=== PATIENT | male | born 1950 | race Caucasian/White ===

== ENCOUNTER 2019-07-28 08:56 | Inpatient (IN) ==
--- NOTE | 2019-07-08 16:16 | PAT Medication Instructions ---
Medication Instructions Date of Service July 08, 2019 Home Medications aspirin [Aspir-81] 81 mg PO QAM 07/07/19 [History Confirmed 07/07/19] empagliflozin [Jardiance] 25 mg PO QAM 07/07/19 [History Confirmed 07/07/19] enalapril maleate [Vasotec] 10 mg PO QAM 07/07/19 [History Confirmed 07/07/19] gabapentin 300 mg PO TID 07/07/19 [History Confirmed 07/07/19] glipizide 10 mg PO BID 07/07/19 [History Confirmed 07/07/19] latanoprost 1 drp OPHTHALMIC (EYE) HS 07/07/19 [History Confirmed 07/07/19] metformin 1,000 mg PO BID 07/07/19 [History Confirmed 07/07/19] multivitamin 1 cap PO DAILY 07/07/19 [History Confirmed 07/07/19] omega 8-yat-svz-fish oil [Fish Oil] 1 cap PO DAILY 07/07/19 [History Confirmed 07/07/19] oxycodone 5 - 10 mg PO UD PRN 07/07/19 [History Confirmed 07/07/19] sildenafil [Viagra] 100 mg PO UD PRN 07/07/19 [History Confirmed 07/07/19] simvastatin 40 mg PO HS 07/07/19 [History Confirmed 07/07/19] ASK your prescriber and surgeon aspirin [Aspir-81] 81 mg PO QAM 07/07/19 [History Confirmed 07/07/19] STOP taking 2 weeks before surgery (or as soon as possible if surgery is within 2 weeks) omega 8-yim-qoj-fish oil [Fish Oil] 1 cap PO DAILY 07/07/19 [History Confirmed 07/07/19] DO NOT take the morning of surgery empagliflozin [Jardiance] 25 mg PO QAM 07/07/19 [History Confirmed 07/07/19] enalapril maleate [Vasotec] 10 mg PO QAM 07/07/19 [History Confirmed 07/07/19] glipizide 10 mg PO BID 07/07/19 [History Confirmed 07/07/19] metformin 1,000 mg PO BID 07/07/19 [History Confirmed 07/07/19] multivitamin 1 cap PO DAILY 07/07/19 [History Confirmed 07/07/19] sildenafil [Viagra] 100 mg PO UD PRN 07/07/19 [History Confirmed 07/07/19] Take morning of surgery With a small sip of water, OTHERWISE NOTHING TO EAT OR DRINK AFTER MIDNIGHT: gabapentin 300 mg PO TID 07/07/19 [History Confirmed 07/07/19] oxycodone 5 - 10 mg PO UD PRN (okay to take up to 4 hours prior to surgery if needed) Take evening before surgery gabapentin 300 mg PO TID 07/07/19 [History Confirmed 07/07/19] glipizide 10 mg PO BID 07/07/19 [History Confirmed 07/07/19] latanoprost 1 drp OPHTHALMIC (EYE) HS 07/07/19 [History Confirmed 07/07/19] metformin 1,000 mg PO BID 07/07/19 [History Confirmed 07/07/19] oxycodone 5 - 10 mg PO UD PRN (if needed) sildenafil [Viagra] 100 mg PO UD PRN (if needed) simvastatin 40 mg PO HS 07/07/19 [History Confirmed 07/07/19] Other Notes If you have any questions please call us at [phone] or [phone] or [phone] or [phone]
--- NOTE | 2019-07-09 13:36 | Anesthesiology Consultation ---
Date of Service July 09, 2019 Assessment & Plan (1) Encounter for pre-operative examination: - Awaiting most recent cardiology office visit note (Dr. Medeiros) and most recent EKG. - Check BSG AM DOS - ASA instructions per surgeon/prescriber Chart Review Chart Review: Patient seen in Pre Admission Testing Teaching & Discussion Pre-Anesthesia Teaching/Discussion Notes: Instructed NPO after midnight before surgery,except medications with 15 cc of water. Medication instructions provided according to the PAT guidelines. History Surgery Operation Date: 07/28/19 11:20 Proposed Procedures p Robotic Laparoscopic Assisted Radical Retropubic Prostatectomy, Possible Open, Possible Pelvic Lymph Node Dissection, Possible Suprapubic Tube Placement - Thanh Badillo MD Height/Weight Height: 5 ft 8 in Weight: 80.3 kg Allergies Allergy/AdvReac Type Severity Reaction Status Date / Time cat dander Allergy Unknown ITCHY EYES Verified 07/07/19 12:33 Iodinated Contrast Media Allergy Unknown SEE NOTES Verified 07/07/19 12:33 BELOW - HX SWELLING IN AIRWAY monosodium glutamate Allergy Unknown TROUBLE Verified 07/07/19 12:33 BREATHING Medications Home Medications Medication Instructions Recorded Confirmed Last Taken aspirin [Aspir-81] 81 mg PO QAM 07/07/19 07/07/19 Unknown empagliflozin [Jardiance] 25 mg PO QAM 07/07/19 07/07/19 Unknown enalapril maleate [Vasotec] 10 mg PO QAM 07/07/19 07/07/19 Unknown gabapentin 300 mg PO TID 07/07/19 07/07/19 Unknown glipizide 10 mg PO BID 07/07/19 07/07/19 Unknown latanoprost 1 drp OPHTHALMIC (EYE) 07/07/19 07/07/19 Unknown metformin 1,000 mg PO BID 07/07/19 07/07/19 Unknown multivitamin 1 cap PO DAILY 07/07/19 07/07/19 Unknown omega 5-pre-oht-fish oil [Fish Oil] 1 cap PO DAILY 07/07/19 07/07/19 Unknown oxycodone 5 - 10 mg PO UD PRN 07/07/19 07/07/19 Unknown sildenafil [Viagra] 100 mg PO UD PRN 07/07/19 07/07/19 Unknown simvastatin 40 mg PO HS 07/07/19 07/07/19 Unknown Cbd gummies 1 dose PO BID 07/09/19 Unknown Past Medical History Medical History CAD (coronary artery disease) mild, non-obstructive CAD per 03/2019 cath Diabetes NIDDM Prostate cancer Sciatica s/p lumbar injection 07/01/19 Sleep apnea CPAP (generally complaint/does not use when on vacation) Umbilical hernia Exercise / Class Metabolic Activity III < 4 Walking/Shop/Light housework (gym few times/week + stationary bike (no chest pain/no sob)) Past Family History Family History Father Diabetes Heart disease Mother Hypertension Heart disease Brother Stomach cancer Past Surgical History Surgical History H/O knee surgery CYST REMOVED, R History of appendectomy History of cardiac cath X3 - 2003, 2004, 03/2019 - no stents History of carpal tunnel surgery of right wrist History of colonoscopy History of hernia surgery inguinal (right)- AGE 6 History of lumbar fusion History of repair of left rotator cuff History of repair of right rotator cuff History of vasectomy Past Anesthesia History No Hx of Anesthesia Complications and No Family Hx of Anesthesia Complications History of PONV No Hx of PONV and No Hx of Motion Sickness Social History Smoking Status: Never smoker Do You Dip or Chew Tobacco: No Hx Alcohol Use: Yes alcohol intake frequency: other Alcohol Intake Frequency Comment: ONCE A YR Hx Substance Use: No Review of Systems Patient denies chest pain, shortness of breath, dyspnea on exertion, joint pain, reflux, cough, wheezing, palpitations. Physical Exam Vital Signs VITALS BP 101/58 P 92 TEMP 98.3 SP02 94%RA RESP 18 PHYSICAL Mildly decreased cervical extension. Full TMJ range of motion. TMD 3 finger breaths Mallampati Score 3 Dentition: missing lower left molar, several caps on molars, small left upper front tooth chip Lungs: clear throughout to auscultation Cardiac: regular rate and rhythm, I/ systolic murmur Spine: normal Carotid arteries: negative bruit Extremities: no edema Testing Laboratory Results 07/09/19 14:05 07/09/19 14:05 Hemoglobin A1c 8.8 % (4.5-5.6) H 07/09/19 14:05 Urine Color Yellow 07/09/19 Unknown Urine Appearance Clear (Clear) 07/09/19 Unknown Urine pH 5.5 (4.5-7.5) 07/09/19 Unknown Ur Specific [place] 1.037 (1.000-1.030) H 07/09/19 Unknown Urine Protein Negative (Negative) 07/09/19 Unknown Urine Glucose (UA) 3+ (Negative) H 07/09/19 Unknown Urine Ketones Trace (Negative) H 07/09/19 Unknown Urine Nitrite Negative (Negative) 07/09/19 Unknown Ur Leukocyte Esterase Negative (Negative) 07/09/19 Unknown Blood Type B Positive 07/09/19 14:05 Antibody Screen NEGATIVE 07/09/19 14:05 *Surgeon office made aware of elevated glucose/hgba1c* Electrocardiogram Date: 07/09/19 SR with first degree AVC with PAC's at 78bpm. RBBB. LAFB. *Bifascicular block* Borderline criteria for septal infarct, age undetermined. Chest X-Ray Date: 07/09/19 Findings: + NAD Echocardiogram Date: 08/27/18 EF 50-55%. No significant valvular disease. Stress Test Date: 03/13/19 Type: nuclear (Lexiscan) Gated MPI with mild inferior HK and normal EF. LVEF 62%. Large sized, moderate intensity, fixed MPI defect involving the inferior, inferoseptal, infero-apical and inferolateral myocardium (suggests large myocardial infarct without significant ischemia). Low risk for ischemia. Subsequent cardiac cath with non- obstructive disease. Cardiac Catheterization Date: 03/25/19 Mild, non-obstructive CAD. No aortic stenosis. LAD 15% luminal irregularities. RCA 30-40% proximal vessel narrowing. Mid AV groove 20% narrowing.
--- NOTE | 2019-07-09 14:40 | XRay Report ---
XR chest Pre-admission PA/Lat CLINICAL HISTORY: Preoperative chest COMPARISON STUDY: 04/30/2017 FINDINGS: The cardiac and mediastinal contours are normal. There is no evidence of focal pulmonary co nsolidation. There is no evidence of failure. No pleural effusions are visualized.[Degenerative cunningham es are present within the dorsal spine. IMPRESSION: No active disease in the chest. ACT 112: Negative or not required by law. Electronically signed by: Suresh Mota M.D. 07/09/2019 2:39 PM
[2019-07-09 15:16] LABS: Appearance Urine Clear (Clear); Bilirubin Urine Negative (Negative); Blood Urine Negative (Negative); Color Urine Yellow; Glucose Urine UA 3+ (Negative); Ketones Urine Trace (Negative); Leukocyte Esterase Urine Negative (Negative); Nitrite Urine Negative (Negative); Protein Urine Negative (Negative); Specific Gravity Urine 1.037 (1.000-1.030); Urobilinogen Urine Negative (Negative); pH Urine 5.5 (4.5-7.5)
[2019-07-09 15:17] LABS: Basophils # (auto) 0.02 K/uL (0-0.2); Basophils % (auto) 0.2 %; Eosinophils # (auto) 0.18 K/uL (0-0.5); Eosinophils % (auto) 2.1 %; Hematocrit (blood only) 47.6 % (42-52); Hemoglobin 16.5 g/dL (14.0-18.0); Immature Granulocytes # (auto) 0.03 K/uL (0.00-0.02); Immature Granulocytes % (auto) 0.4 %; Lymphocytes # (auto) 1.73 K/uL (1.2-3.4); Lymphocytes % (auto) 20.5 %; Mean Corpuscular Hemoglobin 32.6 pg (25-34); Mean Corpuscular Hgb Conc 34.7 g/dL (32-36); Mean Corpuscular Volume 94.1 fL (80-100); Mean Platelet Volume 9.5 fL (7.4-10.4); Monocytes # (auto) 0.75 K/uL (0.11-0.59); Monocytes % (auto) 8.9 %; Neutrophils # (auto) 5.73 K/uL (1.4-6.5); Neutrophils % (auto) 67.9 %; Platelet Count 242 K/uL (130-400); RDW Coefficient of Variation 13.5 % (11.5-14.5); RDW Standard Deviation 46.3 fL (36.4-46.3); Red Blood Count 5.06 M/uL (4.7-6.1); White Blood Count 8.44 K/uL (4.8-10.8)
[2019-07-09 15:57] LABS: BUN Creatinine Ratio 13.1 (10-20); Calcium 8.6 mg/dl (8.5-10.1); Creatinine Clr Calc Pharmacy 48.5 ml/min; Est GFR (African American) 58.9; Est GFR (Non-African American) 50.8; Potassium 4.6 mmol/L (3.5-5.1)
--- NOTE | 2019-07-09 17:38 | Electrocardiogram Report ---
Test Reason : Blood Pressure : / mmHG Vent. Rate : 078 BPM Atrial Rate : 078 BPM P-R Int : 212 ms QRS Dur : 132 ms QT Int : 394 ms P-R-T Axes : 073 -72 026 degrees QTc Int : 449 ms Sinus rhythm with 1st degree A-V block with Premature atrial complexes Right bundle branch block Left anterior fascicular block Borderline Criteria for Septal infarct , age undetermined Abnormal ECG When compared with ECG of 30-APR-2017 11:44, Premature atrial complexes are now Present Vent. rate has increased BY 26 BPM Right bundle branch block is now Present Borderline Criteria for Septal infarct now present Confirmed by Bryant Grant ([id number]) on 07/09/2019 5:37:51 PM Referred By: Thanh Badillo Confirmed By:Bryant Grant
[2019-07-10 06:12] LABS: Estimated Average Glucose 206 mg/dl; Hemoglobin A1C 8.8 % (4.5-5.6)
[~2019-07-28 08:56] MED LIST: CEFAZOLIN 3000MG 72.5 ML IV SCH; HEPARIN SOD 5,000 UNIT/0.5 ML VIAL SQ SCH; LACTATED RINGER'S 1,000 ML IV SCH
[2019-07-28] MEDS ORDERED: LABETALOL HCL IV 5 MG/ML 20ML IV PRN (10:05)
[2019-07-28] MEDS ORDERED: MEPERIDINE HCL 25 MG/ML CARP IV PRN (10:05)
[2019-07-28] MEDS ORDERED: ONDANSETRON INJ 2 MG/ML 2 ML VIAL IV PRN ×2 (10:05→17:39)
[2019-07-28] MEDS ORDERED: HYDROmorphone INJ 1 MG/ML SYRINGE IV PRN (10:05)
[2019-07-28] MEDS ORDERED: ePHEDrine sulfate 50 MG/ML AMP IV PRN (10:05)
[2019-07-28] MEDS ORDERED: PHENYLEPHRINE 100MCG/ML 5ML SYR IV PRN (10:05)
[2019-07-28] MEDS ORDERED: ATROPINE SULFATE 0.1 MG/ML 10ML SYR IV PRN (10:05)
[2019-07-28] MEDS ORDERED: fentaNYL citrate 100 MCG/2 ML VIAL IV PRN (10:05)
[2019-07-28] MEDS ORDERED: fentaNYL citrate 100 MCG/2 ML VIAL ONE ×2 (10:41)
[2019-07-28] MEDS ORDERED: PROPOFOL IV EMULSION 10 MG/ML 20 ML VIAL IV ONE (10:41)
[2019-07-28] MEDS ORDERED: NEOSTIGMINE METHYLSULFATE 5 MG/5 ML SYR ONE (10:41)
[2019-07-28] MEDS ORDERED: LIDOCAINE HCL 2% 2 ML VIAL/AMP(20MG/ML) INFIL ONE (10:41)
[2019-07-28] MEDS ORDERED: MIDAZOLAM HCL 1 MG/ML 2ML VIAL ONE (10:41)
[2019-07-28] MEDS ORDERED: DEXAMETHASONE SOD INJ 4 MG/ML VIAL ONE (10:41)
[2019-07-28] MEDS ORDERED: GLYCOPYRROLATE 0.2 MG/ML VIAL ONE (10:41)
[2019-07-28] MEDS ORDERED: ONDANSETRON INJ 2 MG/ML 2 ML VIAL ONE (10:41)
[2019-07-28] MEDS ORDERED: HYDROmorphone INJ 2 MG/ML SYR/VIAL ONE (10:52)
--- NOTE | 2019-07-28 11:24 | History & Physical Bridge Note ---
Date of Service July 28, 2019 History & Physical Bridge Note I have examined the patient, reviewed the History & Physical and in the interval since the performance of the History & Physical I have noted the following changes of clinical significance: no changes noted
[2019-07-28] MEDS ORDERED: BUPIVACAINE 0.5 % 5 MG/1 ML MPF 30ML VIAL ONE (11:40)
[2019-07-28] MEDS ORDERED: BELLADONNA/OPIUM SUPP 60 MG SUPP PR ONE (12:12)
[2019-07-28] MEDS ORDERED: BELLADONNA/OPIUM SUPP 60 MG SUPP PR PRN (14:12)
[2019-07-28] MEDS ORDERED: SURGICEL ABSORB HEMOSTAT 2IN X 14IN TOP ONE (14:13)
[2019-07-28] MEDS ORDERED: FLOSEAL HEMOSTATIC MATRIX 10ML TOP ONE (14:49)
--- NOTE | 2019-07-28 16:08 | Operative Report ---
PG Post Operative Report Pre & Post Diagnosis Operation Date: 07/28/19 11:10 Pre-Op Diagnosis: Prostate Cancer Post-Op Diagnosis: Prostate Cancer I identified the patient and participated in the time-out.: Yes Procedure Operation Date: 07/28/19 11:10 Actual Procedures p Robotic-Assisted Laparoscopic Prostatectomy and Pelvic Lymph Node Dissection(Not Applicable) - Thanh Badillo MD Surgeon El Badillo MD Ethnographer Pamela Acosta Estimated Blood Loss 100 Findings Consistent with Post-Op Diagnosis Specimens 1. Periprostatic fat 2. Left pelvic lymph nodes 3. Right pelvic lymph nodes 4. Prostate and seminal vesicles Description of Procedure The patient was identified in the preoperative holding area, appropriate informed consents were reviewed and completed, and he was transported to the operating suite. Subcutaneous heparin was administered in the pre-operative holding area. Upon arrival in the operating suite, he received appropriate antibiotics and general anesthesia. He was positioned in dorsal lithotomy, a B&O suppository was inserted after digital rectal exam, and he was prepped and draped in standard fashion. A Chavez catheter was inserted in the sterile field. A Veress needle was passed per umbilicus with uniform insufflation of the abdomen to 15mmHg. He was placed in steep Trendelenburg position. A periumbilical incision was then made to accommodate a 12mm Visiport with 10mm 0degree laparoscope. Inspection of the abdomen was carried out, and there was no evidence of traumatic entry or injury secondary to the Veress needle. After confirming a clear anterior abdominal wall, ports were subsequently placed in standard robotic prostatectomy fashion without incident. To begin the robotic portion of the case, the left lateral aspect of the sigmoid was mobilized off of the left pelvic side wall to allow the pouch of Jorge to be appropriately visualized. I then made an incision in the pouch of Jorge, overlying the seminal vesicles. Both SVs as well as the ampullae of the vasa were entirely dissected, with the vasa transected 3cm from the prostate. The medial umbilical ligaments were then controlled with bipolar electrocautery just inferior to the umbilicus. Following cauterization, they were divided utilizing monopolar cautery. A peritoneal incision was carried from this location to the medial aspect of the internal inguinal rings bilaterally with care to avoid opening through the ring. This incision was concluded when the vas deferens was reached. Dissection of the bladder and prostate off of the posterior aspect of the pubic arch was completed allowing full visualization of the prostate. The fat overlying the prostate was removed en bloc and passed off the table as a specimen labeled "periprostatic fat". The endopelvic fascia was cleared during this portion of the procedure, and subsequently opened - first on the right and then the left. The incision through the endopelvic fascia began near the prostate-bladder junction and was carried to the apex with extreme care to preserve all lateral levator musculature as well as the periurethral musculature and sphincter complex. The puboprostatic ligaments were thinned slightly bilaterally before placing a 0-Vicryl figure of 8 stitch around the DVC. The lymph node dissection was then conducted. External iliac vessels were identified on the pelvic side wall. The packet of fat and lymphatic tissue that resides just under the iliac vein was elevated and off of the vein with a split and roll technique. The packet was dissected laterally to the circumflex vein and distally to the obturator nerve which was preserved. The proximal aspect of the packet was carried towards the bifurcation of the iliac vessels. A combination of monopolar and bipolar cautery were used to assist with control. Clips were placed at the proximal and distal aspects of the packet prior to transection. After completing the dissection on both sides, the packets were collected and passed off of the table as specimens labeled "pelvic lymph nodes". My attention then returned to the prostate, with identification of the bladder neck aided by gentle traction on the Chavez catheter and lateral to medial pressure at the presumed level of the bladder neck with the robotic instruments. An anterior cystotomy was made, the Chavez balloon deflated and the catheter guided through the incision to allow anterior retraction. I attempted to preserve maximal bladder neck musculature as I circumferentially dissected around the bladder neck. After incision through the posterior aspect of the mucosa, the dissection was carried through detrusor muscle until the bilateral ampullae of the vasa were identified. The previously dissected vasa and SVs were brought through the incision and used to elevated the prostate anteriorly. A posterior plane behind the prostate was then developed - splitting Denonvilliers's fascia. This dissection was carried as far as possible towards the apex as well as far as possible laterally. An incision in the lateral prostatic fascia was then made bilaterally to facilitate control of the vascular pedicles. The pedicles were each controlled with a series of Weck clips. The neurovascular bundles were identified and preserved (with caution) bilaterally. The apical attachments of the prostate were remaining at that stage. The DVC was divided with bipolar electrocautery. Padmini-prostatic tissue incised with sharp dissection and monopolar cautery. Maximal urethral length was preserved before dividing the urethra sharply. The prostate was entirely freed at that point, and collected in an EndoCatch bag before being moved out of the field of vision. Hemostasis was confirmed and anastomosis of the bladder and urethra was completed utilizing a double armed V- Lock stitch. A new Chavez catheter was inserted and the anastomosis tested with irrigation. There was no evidence of leak. FloSeal coagulant was placed around the anastomosis. A Adria style stitch was used to edward the peritoneum towards the location of the lymph node dissection. The robot was undocked, the specimen extracted through expansion of the padmini- umbilical camera port. The fascia was closed with a series of 0-PDS figure of 8 stitches. The right customer relations assistant port was closed in two layers - with a figure of 8 0-Vicryl to reapproximate the fascia followed by 4-0 Monocryl to close the skin. Monocryl was used to close all other skin incisions. All wounds were dressed with Dermabond. The case was concluded and the patient taken to the PACU in stable condition. Pamela Acosta assisted from incision to closure. I attest to the content of the Intraoperative Record and any orders documented therein. Any exceptions are noted below.
--- NOTE | 2019-07-28 16:32 | Anesthesiology Progress Note ---
Date of Service July 28, 2019 Anesthesia Post Procedure Vital Signs Vital Signs: Temp Pulse Pulse Resp BP Pulse Ox 07/28/19 16:30 36.3 C L 86 14 141/71 H 95 07/28/19 16:20 85 16 157/79 H 93 07/28/19 16:10 85 18 131/77 96 07/28/19 16:01 36.1 C L 91 H 16 127/69 96 07/28/19 09:30 36.8 C 97 H 20 125/80 95 Pain Intensity Lower Neck: Pain Intensity: 2 Transfer of Care Handoff Completed per policy Notes Mental Status: alert / awake / arousable and participated in evaluation Patient Amnestic to Procedure: Yes Nausea / Vomiting: adequately controlled Pain: adequately controlled Airway Patency, RR, SpO2: stable & adequate BP & HR: stable & adequate Hydration State: stable & adequate Anesthetic Complications: no major complications apparent
[2019-07-28 16:52] LABS: Hematocrit (blood only) 48.2 % (42-52); Hemoglobin 16.9 g/dL (14.0-18.0); Mean Corpuscular Hemoglobin 32.4 pg (25-34); Mean Corpuscular Volume 92.3 fL (80-100); Mean Platelet Volume 8.6 fL (7.4-10.4); Platelet Count 218 K/uL (130-400); RDW Standard Deviation 44.2 fL (36.4-46.3); Red Blood Count 5.22 M/uL (4.7-6.1); White Blood Count 14.41 K/uL (4.8-10.8)
[2019-07-28 16:54] LABS: Mean Corpuscular Hgb Conc 35.1 g/dL (32-36)
[2019-07-28 17:10] LABS: BUN Creatinine Ratio 21.5 (10-20); Calcium 8.5 mg/dl (8.5-10.1); Creatinine Clr Calc Pharmacy 72.8 ml/min; Est GFR (African American) 96.2; Potassium 4.5 mmol/L (3.5-5.1)
[2019-07-28 17:23] LABS: Basophils # (auto) 0.02 K/uL (0-0.2); Basophils % (auto) 0.1 %; Eosinophils # (auto) 0.01 K/uL (0-0.5); Eosinophils % (auto) 0.1 %; Immature Granulocytes # (auto) 0.06 K/uL (0.00-0.02); Immature Granulocytes % (auto) 0.4 %; Lymphocytes # (auto) 1.12 K/uL (1.2-3.4); Lymphocytes % (auto) 7.8 %; Monocytes # (auto) 0.37 K/uL (0.11-0.59); Monocytes % (auto) 2.6 %; Neutrophils # (auto) 12.83 K/uL (1.4-6.5)
[2019-07-28] MEDS ORDERED: MoRPHine SULFATE 10 MG/ML CARP/VIAL IV PRN (17:39)
[2019-07-28] MEDS ORDERED: MoRPHine SULFATE 4 MG/ML 1 ML CARP\\VIAL IV PRN (17:39)
[2019-07-28] MEDS ORDERED: OXYCODONE HCL IR 5 MG TAB (IMMEDIATE RELEASE) PO PRN (17:39)
[2019-07-28] MEDS ORDERED: PHARMACY GLYCEMIC MGMT CONSULT PRN (17:41)
[2019-07-28] MEDS: LACTATED RINGER'S 1,000 ML IV SCH (17:47)
[2019-07-28] MEDS: ACETAMINOPHEN 1,000 MG/100 ML VIAL IV SCH (17:54)
[2019-07-28] MEDS ORDERED: INSULIN GLARGINE SOLOSTAR 100 UNITS/ML 3 ML PEN SC STA (17:55)
[2019-07-28] MEDS ORDERED: INSULIN ASPART 100 UNITS/ML 3 ML PEN SC SCH (18:00)
[2019-07-28] MEDS ORDERED: GLUCOSE 40% GEL 15 GM TUBE PO PRN (18:00)
[2019-07-28] MEDS ORDERED: GLUCOSE 10 TABS/TUBE PO PRN (18:00)
[2019-07-28] MEDS ORDERED: DEXTROSE 50% 50 ML SYRINGE IV PRN (18:00)
[2019-07-28] MEDS ORDERED: CARBOHYDRATES FOR HYPOGLYCEMIA PO PRN (18:00)
[2019-07-28] MEDS ORDERED: GLUCAGON FOR INJ 1 MG VIAL IM PRN (18:00)
--- NOTE | 2019-07-28 18:03 | Pharmacy Report ---
Glycemic Control Consultation - Date of Service July 28, 2019 - Scope Scope: Glycemic Pharmacist consulted by WILLY Roche on 07/28/2019 for glycemic control and to write orders per [facility] inpatient glycemic control protocol - Objective Weight: 76.884 kg Accuchecks BSG (last 24hrs): 07/28/19 07/28/19 07/28/19 09:23 16:03 16:40 Glucose 212 H POC Glucose 152 H 181 H 07/28/19 17:46 Glucose POC Glucose 178 H Laboratory Data (last 24hrs): 07/28/19 16:40 Potassium 4.5 Carbon Dioxide 17 L Anion Gap 13.0 H Creatinine 0.94 Est Cr Clr Drug Dosing 72.8 HbA1c: Hemoglobin A1c 8.8 % (4.5-5.6) H 07/09/19 14:05 - Recent Pertinent Medications Outpatient Anti-diabetic Regimen: * Jardiance 25 mg daily, Glipizide 10 mg BID, Metformin 1000 mg BID * A1c = 8.8 % (07/09/2019) The patient is currently receiving: * No coverage ordered as of yet Risk Factors for Insulin Resistance: * Steroids: * Dexamethasone 8 mg pre-op * Recent Surgery: * POD #0 prostatectomy * Diet: * Clear Liquids - Assessment & Plan Assessment & Plan: ASSESSMENT: * 69 yo M admitted s/p prostatectomy today * Diet is clear liquids at this time * Received Dexamethasone pre-op * Admission BSG 152 mg/dL, now 181 mg/dL * Patient is insulin-naive PLAN FOR INPATIENT GLYCEMIC CONTROL: * Pt is maintained on oral antidiabetic agents as an outpatient * Oral agents are not recommended for inpatient use d/t drug interactions, changing PO intake, and difficulty titrating for acute hyper/hypoglycemia. ADA recommends re-initiating outpatient oral agents 1-2 days prior to discharge if/when appropriate if they were held on admission. * Will hold oral agents for admission and utilize SQ basal bolus insulin regimen which is the recommended regimen for inpatient glycemic control. * Will initiate weight based insulin dosing for insulin baldo patient and titrate based on BSG trends. * Basal insulin * Lantus 12 units SQ x 1 now (80% of 0.2 units/kg based on current BSG and steroid dose) * Bolus insulin * NovoLog per scale Q6hrs * Goal Range: Low 120 mg/dL - High 150 mg/dL * Correction Factor: 20 mg/dL/unit * Nutritional / Prandial insulin per carb ratio of 1 unit per 7 grams CHO consumed DISCHARGE RECOMMENDATIONS: * Based on patient's most recent A1c of 8.8%, outpatient regimen is not adequately controlling diabetes * Patient may require basal and/or bolus insulin upon discharge * Further recommendation will be made closer to discharge * Please note that the plan above was derived based on current level of insulin resistance and hospital stress. These recommendations are appropriate for inpatient admission only. Plan of care upon discharge will need to be reassessed to avoid potential outpatient hypo/hyperglycemia. Thank you.
[2019-07-28] MEDS: OXYCODONE HCL IR 5 MG TAB (IMMEDIATE RELEASE) PO PRN (18:36)
[2019-07-28] MEDS ORDERED: Nursing to Pharmacy Communication ONE (18:49)
[2019-07-28] MEDS: INSULIN ASPART 100 UNITS/ML 3 ML PEN SC SCH ×2 (18:59→20:41)
[2019-07-28] MEDS: CEFAZOLIN 2000MG 2,000 MG/15 ML SYR IV SCH (20:36)
[2019-07-28] MEDS: HEPARIN SOD 5,000 UNIT/0.5 ML VIAL SQ SCH (20:38)
[2019-07-28] MEDS: GABAPENTIN 300 MG CAP PO SCH (20:53)
[2019-07-28] MEDS: LATANOPROST 0.005% OP SOLN 2.5 ML BTL OP SCH (20:53)
[2019-07-28] MEDS: FAMOTIDINE 10 MG TABLET PO SCH (20:54)
[2019-07-28] MEDS: SIMVASTATIN 40 MG TAB PO SCH (20:54)
[2019-07-28] MEDS: DOCUSATE SODIUM 100 MG CAP PO SCH (20:55)
[2019-07-29] MEDS: INSULIN ASPART 100 UNITS/ML 3 ML PEN SC SCH ×7 (00:16→21:07)
[2019-07-29] MEDS: ACETAMINOPHEN 1,000 MG/100 ML VIAL IV SCH ×3 (01:45→19:22)
[2019-07-29] MEDS: LACTATED RINGER'S 1,000 ML IV SCH ×3 (01:46→21:39)
[2019-07-29] MEDS: CEFAZOLIN 2000MG 2,000 MG/15 ML SYR IV SCH (05:03)
[2019-07-29 05:45] LABS: Eosinophils # (auto) 0.01 K/uL (0-0.5); Eosinophils % (auto) 0.1 %; Hematocrit (blood only) 42.1 % (42-52); Hemoglobin 14.1 g/dL (14.0-18.0); Immature Granulocytes # (auto) 0.03 K/uL (0.00-0.02); Immature Granulocytes % (auto) 0.3 %; Lymphocytes # (auto) 1.37 K/uL (1.2-3.4); Lymphocytes % (auto) 12.6 %; Mean Corpuscular Hemoglobin 31.5 pg (25-34); Mean Corpuscular Hgb Conc 33.5 g/dL (32-36); Mean Platelet Volume 8.9 fL (7.4-10.4); Monocytes # (auto) 2.28 K/uL (0.11-0.59); Neutrophils # (auto) 7.19 K/uL (1.4-6.5); Platelet Count 211 K/uL (130-400); RDW Coefficient of Variation 13.4 % (11.5-14.5); RDW Standard Deviation 45.9 fL (36.4-46.3); Red Blood Count 4.48 M/uL (4.7-6.1); White Blood Count 10.88 K/uL (4.8-10.8)
[2019-07-29 06:20] LABS: BUN Creatinine Ratio 18.1 (10-20); Calcium 8.1 mg/dl (8.5-10.1); Creatinine Clr Calc Pharmacy 69.8 ml/min; Est GFR (African American) 91.4; Est GFR (Non-African American) 78.9; Potassium 4.2 mmol/L (3.5-5.1)
[2019-07-29] MEDS: OXYCODONE HCL IR 5 MG TAB (IMMEDIATE RELEASE) PO PRN (07:08)
[2019-07-29] MEDS ORDERED: KETOROLAC TROMETHAMINE 15 MG/ML VIAL IV PRN (07:40)
--- NOTE | 2019-07-29 08:03 | Urology Progress Note ---
Date of Service July 29, 2019 Assessment & Plan (1) Carcinoma of prostate: progressing appropriately advance diet toradol added for PRN use cont ambulation likely d/c home tomorrow Subjective Doing very well OOB and ambulating no nausea/vomiting pain well controlled hungry Physical Exam Physical Exam: incisions appropriate urine clear Results & Data Vital Signs (Past 12 Hours) Vital Signs Temp Pulse Resp BP Pulse Ox 07/29/19 07:12 36.8 C 87 18 128/70 97 07/29/19 03:50 36.4 C L 82 16 103/52 L 92 07/28/19 23:25 36.4 C L 90 18 115/63 96 07/28/19 20:16 36.5 C 96 H 18 113/65 96 PG Care Time/CCT Total # of Minutes Spent Total Time Spent with Patient: Total time spent is greater than 50% in coordination of care (as documented) at patient's floor/unit and/or counseling patient: Coding Level of Care Code None Diagnoses Carcinoma of prostate C61
[2019-07-29] MEDS: ENALAPRIL MALEATE 10 MG TAB PO SCH (08:59)
[2019-07-29] MEDS: FAMOTIDINE 10 MG TABLET PO SCH ×2 (08:59→21:06)
[2019-07-29] MEDS: MULTIVITAMIN TAB PO SCH (08:59)
[2019-07-29] MEDS: DOCUSATE SODIUM 100 MG CAP PO SCH ×2 (08:59→21:05)
[2019-07-29] MEDS: HEPARIN SOD 5,000 UNIT/0.5 ML VIAL SQ SCH ×2 (08:59→21:06)
[2019-07-29] MEDS: GABAPENTIN 300 MG CAP PO SCH ×3 (08:59→21:06)
--- NOTE | 2019-07-29 09:59 | Pharmacy Report ---
Pharmacy Glycemic Short Note 2 - Date of Service July 29, 2019 - Glycemic Short BSG Results (Last 24 hours): 07/28/19 07/28/19 07/28/19 16:03 16:40 17:46 Glucose 212 H POC Glucose 181 H 178 H 07/28/19 07/29/19 07/29/19 20:39 00:15 03:37 Glucose POC Glucose 224 H 164 H 150 H 07/29/19 05:15 Glucose 133 H POC Glucose ASSESSMENT: 07/29: * Patient received total of 22 units of insulin yesterday, of which 12 units were basal insulin to help cover steroids * Fasting BSG w/in range at 115 mg/dL - will hold basal this morning and add scale if needed for HS * Continue same CF/CR this morning. Will loosen slightly this evening as steroids wearing off PLAN FOR INPATIENT GLYCEMIC CONTROL: * Will hold oral agents for admission and utilize SQ basal bolus insulin regimen which is the recommended regimen for inpatient glycemic control. * Basal insulin * Lantus - 0-10 units HS per scale if BSG >180 * Bolus insulin - loosen * NovoLog per scale Q6hrs * Goal Range: Low 120 mg/dL - High 150 mg/dL * Correction Factor: 25 mg/dL/unit * Nutritional / Prandial insulin per carb ratio of 1 unit per 8 grams CHO consumed
[2019-07-29] MEDS ORDERED: LANTUS PER UNIT CHARGE SQ SCH (21:00)
[2019-07-29] MEDS: LATANOPROST 0.005% OP SOLN 2.5 ML BTL OP SCH (21:05)
[2019-07-29] MEDS: SIMVASTATIN 40 MG TAB PO SCH (21:05)
[2019-07-30] MEDS: ACETAMINOPHEN 1,000 MG/100 ML VIAL IV SCH ×2 (02:01→10:12)
[2019-07-30 06:19] LABS: Basophils # (auto) 0.01 K/uL (0-0.2); Basophils % (auto) 0.1 %; Eosinophils % (auto) 1.3 %; Hematocrit (blood only) 37.6 % (42-52); Hemoglobin 12.7 g/dL (14.0-18.0); Immature Granulocytes # (auto) 0.02 K/uL (0.00-0.02); Immature Granulocytes % (auto) 0.3 %; Lymphocytes # (auto) 1.43 K/uL (1.2-3.4); Lymphocytes % (auto) 18.8 %; Mean Corpuscular Hemoglobin 30.8 pg (25-34); Mean Corpuscular Hgb Conc 33.8 g/dL (32-36); Mean Corpuscular Volume 91.3 fL (80-100); Mean Platelet Volume 8.2 fL (7.4-10.4); Monocytes # (auto) 1.41 K/uL (0.11-0.59); Monocytes % (auto) 18.6 %; Neutrophils # (auto) 4.62 K/uL (1.4-6.5); Neutrophils % (auto) 60.9 %; Platelet Count 187 K/uL (130-400); RDW Coefficient of Variation 13.3 % (11.5-14.5); RDW Standard Deviation 44.7 fL (36.4-46.3); Red Blood Count 4.12 M/uL (4.7-6.1); White Blood Count 7.59 K/uL (4.8-10.8)
[2019-07-30 06:51] LABS: BUN Creatinine Ratio 19.6 (10-20); Creatinine Clr Calc Pharmacy 96.3 ml/min; Est GFR (African American) 111.7; Est GFR (Non-African American) 96.4; Potassium 3.8 mmol/L (3.5-5.1)
--- NOTE | 2019-07-30 08:24 | Urology Progress Note ---
Date of Service July 30, 2019 Assessment & Plan (1) Carcinoma of prostate: RALP doing very well plan for d/c home this afternoon Subjective one borderline vasovagal episode last evening - otherwise an uneventful night ambulating tolerating diet no pain Physical Exam Physical Exam: incisions healing nicely urine clear Results & Data Vital Signs (Past 12 Hours) Vital Signs Temp Pulse Resp BP Pulse Ox 07/30/19 04:00 36.5 C 77 16 118/68 93 07/29/19 23:28 103/59 L 07/29/19 23:05 36.4 C L 74 16 103/43 L 94 07/29/19 21:37 79 112/65 95 07/29/19 21:01 36.7 C 76 16 100/52 L 92 PG Care Time/CCT Total # of Minutes Spent Total Time Spent with Patient: Total time spent is greater than 50% in coordination of care (as documented) at patient's floor/unit and/or counseling patient: Coding Level of Care Code None Diagnoses Carcinoma of prostate C61
[2019-07-30] MEDS: LACTATED RINGER'S 1,000 ML IV SCH (08:32)
[2019-07-30] MEDS: GABAPENTIN 300 MG CAP PO SCH ×2 (09:08→13:14)
[2019-07-30] MEDS: DOCUSATE SODIUM 100 MG CAP PO SCH (09:09)
[2019-07-30] MEDS: MULTIVITAMIN TAB PO SCH (09:09)
[2019-07-30] MEDS: HEPARIN SOD 5,000 UNIT/0.5 ML VIAL SQ SCH (09:09)
[2019-07-30] MEDS: FAMOTIDINE 10 MG TABLET PO SCH (09:09)
[2019-07-30] MEDS: ENALAPRIL MALEATE 10 MG TAB PO SCH (09:10)
[2019-07-30] MEDS: INSULIN ASPART 100 UNITS/ML 3 ML PEN SC SCH ×2 (09:12→13:15)
[2019-07-30] MEDS ORDERED: LANTUS PER UNIT CHARGE SQ SCH (21:00)
== END 2019-07-30 14:35 | disposition home or self-care (01) | DRG 708 ==
LOC: ASU 08:56 → 3W 16:21

== ENCOUNTER 2019-09-11 06:07 | Inpatient (IN) ==
--- NOTE | 2019-08-28 10:21 | PAT Medication Instructions ---
Medication Instructions Date of Service August 28, 2019 Home Medications Jardiance 25 mg PO QAM aspirin [Aspir-81] 81 mg PO QAM enalapril maleate [Vasotec] 10 mg PO QAM gabapentin 300 mg PO TID glipizide 10 mg PO BID latanoprost [Xalatan] 1 drp OPHTHALMIC (EYE) HS metformin 1,000 mg PO BID multivitamin 1 cap PO DAILY omega 0-btz-nvm-fish oil [Fish Oil] 1 cap PO DAILY simvastatin 20 mg PO HS Cbd Gummies 3 tab PO DAILY acetaminophen [Tylenol Extra Strength] 1,000 mg PO UD PRN ibuprofen [Advil] 400 mg PO UD PRN sildenafil 100 mg PO UD PRN ASK your surgeon for instructions ibuprofen [Advil] 400 mg PO UD PRN ASK your prescriber and surgeon aspirin [Aspir-81] 81 mg PO QAM DO NOT take the morning of surgery Jardiance 25 mg PO QAM enalapril maleate [Vasotec] 10 mg PO QAM glipizide 10 mg PO BID metformin 1,000 mg PO BID multivitamin 1 cap PO DAILY Cbd Gummies 3 tab PO DAILY sildenafil 100 mg PO UD PRN Take morning of surgery With a small sip of water, OTHERWISE NOTHING TO EAT OR DRINK AFTER MIDNIGHT: gabapentin 300 mg PO TID acetaminophen [Tylenol Extra Strength] 1,000 mg PO UD PRN (okay to take up to 4 hours prior to surgery if needed) Take evening before surgery gabapentin 300 mg PO TID glipizide 10 mg PO BID latanoprost [Xalatan] 1 drp OPHTHALMIC (EYE) HS metformin 1,000 mg PO BID simvastatin 20 mg PO HS acetaminophen [Tylenol Extra Strength] 1,000 mg PO UD PRN (if needed) sildenafil 100 mg PO UD PRN (if needed) Other Notes If you have any questions please call us at [phone] or [phone] or [phone] or [phone]
--- NOTE | 2019-08-31 09:03 | Anesthesiology Consultation ---
Date of Service August 31, 2019 Assessment & Plan (1) Encounter for pre-operative examination: S/P robotic radical retropubic prostatectomy 07/28/19 -- MAC #4, ETT 7.5, grade view II. No complications. Patient is concerned about having a urinary catheter during surgery, given rece nt prostatectomy. Advised to discuss with Dr. Badillo at his office visit 09/06. Re: abnormal EKG -- Received previous EKG with similar findings. S/P cardiac cath 03/2019 with mild-mod, non-obstructive disease. Seen by cardiology: 04/24/19: "overall he is doing well- his cath showed mild-mod CAD-- medical therapy recommended.. rec medical therapy and observation for now." F/U one year recommended. Check BSG AM DOS Chart Review Chart Review: Acceptable Risk for Surgery and Patient seen in Pre Admission Testing Teaching & Discussion Instructed NPO after midnight before surgery, except medications with 15 cc of water. Medication instructions provided according to the PAT guidelines. History Surgery Operation Date: 09/14/19 07:45 Proposed Procedures p C4-C7 Anterior Cervical Discectomy Fusion, C5 and C6 Corpectomy, Spinal Cord Mointoring - Arnol Snyder, Height/Weight Height: 5 ft 8 in Weight: 77.1 kg Allergies Allergy/AdvReac Type Severity Reaction Status Date / Time monosodium glutamate Allergy Unknown TROUBLE Verified 08/21/19 10:36 BREATHING, N/V cat dander AdvReac Unknown ITCHY EYES Verified 08/21/19 10:36 Medications Home Medications Medication Instructions Recorded Confirmed Last Taken Jardiance 25 mg PO QAM 07/07/19 08/21/19 07/27/19 07:00 aspirin [Aspir-81] 81 mg PO QAM 07/07/19 08/21/19 07/16/19 enalapril maleate [Vasotec] 10 mg PO QAM 07/07/19 08/21/19 07/27/19 07:00 gabapentin 300 mg PO TID 07/07/19 08/21/19 07/27/19 07:00 glipizide 10 mg PO BID 07/07/19 08/21/19 07/27/19 07:00 latanoprost [Xalatan] 1 drp OPHTHALMIC (EYE) HS 07/07/19 08/21/19 07/27/19 21:00 metformin 1,000 mg PO BID 07/07/19 08/21/19 07/27/19 07:00 multivitamin 1 cap PO DAILY 07/07/19 08/21/19 07/21/19 omega 0-ayz-pyn-fish oil [Fish Oil] 1 cap PO DAILY 07/07/19 08/21/19 07/21/19 simvastatin 20 mg PO HS 07/07/19 08/21/19 07/27/19 21:00 Cbd Gummies 3 tab PO DAILY 08/21/19 08/21/19 Unknown acetaminophen [Tylenol Extra 1,000 mg PO UD PRN 08/21/19 08/21/19 Unknown Strength] ibuprofen [Advil] 400 mg PO UD PRN 08/21/19 08/21/19 Unknown sildenafil 100 mg PO UD PRN 08/21/19 08/21/19 Unknown Past Medical History Medical History Bone spur NECK CAD (coronary artery disease) mild, non-obstructive CAD per 03/2019 cath Decreased muscle strength UPPER AND LOWER BODY, HAS HAD SIGNIFICANT MUSCLE ATROPHY SINCE PREVIOUS BACK SURGERY. Diabetes NIDDM Neck problem Prostate cancer s/p total prostatectomy 06/2019 Sciatica s/p lumbar injection 07/01/19 Sleep apnea CPAP, using inconsistently Exercise / Class Metabolic Activity II 4-5 Yardwork/Stairs/Walk up hill (Denies CP or SOB with 1 FOS, but slow 2/2 muscle weakness) Past Family History Family History Father Diabetes Heart disease Mother Hypertension Heart disease Brother Stomach cancer Past Surgical History Surgical History H/O knee surgery CYST REMOVED, R History of appendectomy History of cardiac cath X3 - 2003, 2004, 03/2019 - no stents History of carpal tunnel surgery of right wrist History of colonoscopy History of hernia surgery inguinal (right)- AGE 6 History of lumbar fusion History of prostatectomy S/P 07/28/19 (ROBOTIC) History of repair of left rotator cuff History of repair of right rotator cuff History of vasectomy Past Anesthesia History No Hx of Anesthesia Complications and No Family Hx of Anesthesia Complications History of PONV No Hx of PONV and No Hx of Motion Sickness Social History Smoking Status: Never smoker Do You Dip or Chew Tobacco: No Hx Alcohol Use: No alcohol intake frequency: other Hx Substance Use: No substance use type: other Substance Use Type Other:: CBD GUMMIES Review of Systems Pt denies any recent chest pain, shortness of breath, palpitations, cough, fever or URI. Physical Exam Vital Signs BP: 99/62 (pt asymptomatic) P: 80bpm SPO2: 94% RA T: 97.8 F R: 12 ENMT Mouth: no dental restorations, no chipped teeth and no loose teeth Thyromental Distance: > or= 3.5 Finger Breadths (3.5) Mallampati Class: III Neck normal visual inspection and + facial hair (short goatee, pt ok to shave prior to surgery); neck extension not limited Respiratory normal respiratory effort Auscultation: lungs clear to auscultation bilaterally Cardiovascular Rate/Rhythm: regular rate and regular rhythm Heart Sounds: no murmur Extremities: no edema Testing Laboratory Results 08/31/19 09:24 08/31/19 09:24 PT 10.4 Seconds (9.0-12.0) 08/31/19 09:24 INR 1.0 (0.9-1.1) 08/31/19 09:24 APTT 27.4 Seconds (21.0-31.0) 08/31/19 09:24 Urine Color Yellow 08/31/19 09:24 Urine Appearance Clear (Clear) 08/31/19 09:24 Urine pH 5.0 (4.5-7.5) 08/31/19 09:24 Ur Specific [place] 1.044 (1.000-1.030) H 08/31/19 09:24 Urine Protein Negative (Negative) 08/31/19 09:24 Urine Glucose (UA) 3+ (Negative) H 08/31/19 09:24 Urine Ketones Trace (Negative) H 08/31/19 09:24 Urine Nitrite Negative (Negative) 08/31/19 09:24 Ur Leukocyte Esterase Negative (Negative) 08/31/19 09:24 Urine WBC (Auto) 5-10 /hpf (0-5) H 08/31/19 09:24 Urine RBC (Auto) 5-10 /hpf (0-4) H 08/31/19 09:24 U Hyaline Cast (Auto) 1-5 /lpf (0-5) 08/31/19 09:24 U Epithel Cells (Auto) 0-5 /lpf (0-5) 08/31/19 09:24 Urine Bacteria (Auto) Negative (Negative) 08/31/19 09:24 Blood Type B Positive 08/31/19 09:24 Antibody Screen NEGATIVE 08/31/19 09:24 A1C 07/09/19 = 8.8% *Surgeon's office notified of elevated glucose and A1C (from 06/2019) Electrocardiogram Date: 07/09/19 Sinus rhythm at 78 bpm with first-degree AV block and PACs. Right bundle branch block. Left anterior fascicular block. Borderline criteria for septal infarct, age undetermined. Chest X-Ray Date: 07/09/19 Findings: + NAD Other Testing Echocardiogram Date: 08/27/18 EF 50-55%. No significant valvular disease. Stress Test Date: 03/13/19 Type: nuclear (Lexiscan) Gated MPI with mild inferior HK and normal EF. LVEF 62%. Large sized, moderate intensity, fixed MPI defect involving the inferior, inferoseptal, infero-apical and inferolateral myocardium (suggests large myocardial infarct without si gnificant ischemia). Low risk for ischemia. Subsequent cardiac cath with non- obstructive disease. Cardiac Catheterization Date: 03/25/19 Mild, non-obstructive CAD. No aortic stenosis. LAD 15% luminal irregularities. RCA 30-40% proximal vessel narrowing. Mid AV groove 20% narrowing.
[2019-08-31 10:56] LABS: Basophils # (auto) 0.01 K/uL (0-0.2); Basophils % (auto) 0.1 %; Eosinophils # (auto) 0.19 K/uL (0-0.5); Eosinophils % (auto) 2.8 %; Hematocrit (blood only) 49.2 % (42-52); Hemoglobin 16.4 g/dL (14.0-18.0); Immature Granulocytes # (auto) 0.02 K/uL (0.00-0.02); Immature Granulocytes % (auto) 0.3 %; Lymphocytes # (auto) 1.24 K/uL (1.2-3.4); Lymphocytes % (auto) 18.4 %; Mean Corpuscular Hemoglobin 31.8 pg (25-34); Mean Corpuscular Hgb Conc 33.3 g/dL (32-36); Mean Corpuscular Volume 95.3 fL (80-100); Mean Platelet Volume 9.6 fL (7.4-10.4); Monocytes % (auto) 11.9 %; Neutrophils # (auto) 4.48 K/uL (1.4-6.5); Neutrophils % (auto) 66.5 %; Platelet Count 226 K/uL (130-400); RDW Coefficient of Variation 13.6 % (11.5-14.5); RDW Standard Deviation 47.3 fL (36.4-46.3); Red Blood Count 5.16 M/uL (4.7-6.1); White Blood Count 6.74 K/uL (4.8-10.8)
[2019-08-31 11:04] LABS: Appearance Urine Clear (Clear); Bacteria Urine Automated Negative (Negative); Bilirubin Urine Negative (Negative); Blood Urine 1+ (Negative); Color Urine Yellow; Epithelial Cell Urine Auto 0-5 /lpf (0-5); Glucose Urine UA 3+ (Negative); Ketones Urine Trace (Negative); Leukocyte Esterase Urine Negative (Negative); Nitrite Urine Negative (Negative); Protein Urine Negative (Negative); Specific Gravity Urine 1.044 (1.000-1.030); Urobilinogen Urine Negative (Negative)
[2019-08-31 11:08] LABS: Partial Thromboplastin Time 27.4 Seconds (21.0-31.0); Prothrombin Time 10.4 Seconds (9.0-12.0)
[2019-08-31 11:17] LABS: BUN Creatinine Ratio 17.6 (10-20); Calcium 8.8 mg/dl (8.5-10.1); Creatinine Clr Calc Pharmacy 72.8 ml/min; Est GFR (African American) 96.2; Potassium 4.4 mmol/L (3.5-5.1)
[2019-08-31 11:29] LABS: Beta-Hydroxybutyrate 2.62 mg/dl (0.2-2.81)
[~2019-09-11 06:07] MED LIST changes: +ACETAMINOPHEN 500 MG TAB PO SCH; +CEFAZOLIN 1000MG 1,000 MG/7.5 ML SYR IV SCH; -CEFAZOLIN 3000MG 72.5 ML IV SCH; +CeleBREX 200 MG CAP PO SCH; +GABAPENTIN 300 MG CAP PO SCH; -HEPARIN SOD 5,000 UNIT/0.5 ML VIAL SQ SCH; -LACTATED RINGER'S 1,000 ML IV SCH; +LR 15ML/HR IV SCH
[2019-09-11] MEDS ORDERED: PROPOFOL IV EMULSION 10 MG/ML 100 ML VIAL IV ONE (06:14)
[2019-09-11] MEDS ORDERED: PROPOFOL IV EMULSION 10 MG/ML 20 ML VIAL IV ONE (06:32)
[2019-09-11] MEDS ORDERED: LIDOCAINE HCL 2% 2 ML VIAL/AMP(20MG/ML) INFIL ONE (06:32)
[2019-09-11] MEDS ORDERED: SUCCINYLCHOLINE CHLORIDE 20 MG/ML 10 ML VIAL ONE (06:32)
[2019-09-11] MEDS ORDERED: ONDANSETRON INJ 2 MG/ML 2 ML VIAL ONE (06:32)
[2019-09-11] MEDS ORDERED: ROCURONIUM BROMIDE 10 MG/ML 5 ML VIAL ONE (06:32)
[2019-09-11] MEDS ORDERED: fentaNYL citrate 100 MCG/2 ML VIAL ONE ×3 (06:32→09:54)
[2019-09-11] MEDS ORDERED: SODIUM CHLORIDE 0.9% INJ 10 ML VIAL ONE (06:40)
[2019-09-11] MEDS ORDERED: ePHEDrine sulfate 50 MG/ML AMP IV PRN (07:02)
[2019-09-11] MEDS ORDERED: ATROPINE SULFATE 0.1 MG/ML 10ML SYR IV PRN (07:02)
[2019-09-11] MEDS ORDERED: HYDROmorphone INJ 2 MG/ML SYR/VIAL IV PRN (07:02)
[2019-09-11] MEDS ORDERED: PROMETHAZINE HCL 12.5 MG in SODIUM CHLORIDE 0.9% 50 ML IV PRN ×2 (07:02→12:00)
[2019-09-11] MEDS ORDERED: ONDANSETRON INJ 2 MG/ML 2 ML VIAL IV PRN ×2 (07:02→12:00)
[2019-09-11] MEDS ORDERED: fentaNYL citrate 100 MCG/2 ML VIAL IV PRN (07:02)
[2019-09-11] MEDS ORDERED: METOCLOPRAMIDE HCL INJ 5 MG/ML 2 ML VIAL IV PRN ×2 (07:02→12:00)
[2019-09-11] MEDS ORDERED: BACITRACIN INJ 50,000 UNIT VIAL ONE (07:10)
--- NOTE | 2019-09-11 07:29 | History & Physical Bridge Note ---
Date of Service September 11, 2019 History & Physical Bridge Note I have examined the patient, reviewed the History & Physical and in the interval since the performance of the History & Physical I have noted the following changes of clinical significance: no changes noted
--- NOTE | 2019-09-11 07:30 | History & Physical Report ---
Date of Service September 11, 2019 Assessment & Plan (1) Cervical stenosis of spinal canal: C4-C7 anterior cervical discectomy and fusion, C5 and C6 corpectomy Present on Admission?: Yes History of Present Illness Chief Complaint: Neck and bilateral arm pain Primary Care Provider: Tran Allen, DO This is a 69-year-old male presents with chronic persistent neck and arm symptoms after failing extensive course of nonoperative care is here for surgical intervention. Allergies Allergy/AdvReac Type Severity Reaction Status Date / Time monosodium glutamate Allergy Unknown TROUBLE Verified 09/11/19 06:29 BREATHING, N/V cat dander AdvReac Unknown ITCHY EYES Verified 09/11/19 06:29 Home Medications Home Medications Medication Instructions Recorded Confirmed Type Jardiance 12.5 mg PO QAM 07/07/19 09/11/19 History aspirin [Aspir-81] 81 mg PO QAM 07/07/19 09/11/19 History enalapril maleate [Vasotec] 10 mg PO QAM 07/07/19 09/11/19 History gabapentin 300 mg PO TID 07/07/19 09/11/19 History glipizide 10 mg PO BID 07/07/19 09/11/19 History latanoprost [Xalatan] 1 drp OPHTHALMIC (EYE) HS 07/07/19 09/11/19 History metformin 1,000 mg PO BID 07/07/19 09/11/19 History multivitamin 1 cap PO DAILY 07/07/19 09/11/19 History omega 7-npu-pbp-fish oil [Fish Oil] 1 cap PO DAILY 07/07/19 09/11/19 History simvastatin 20 mg PO HS 07/07/19 09/11/19 History Cbd Gummies 3 tab PO DAILY 08/21/19 09/11/19 History acetaminophen [Tylenol Extra 1,000 mg PO UD PRN 08/21/19 09/11/19 History Strength] ibuprofen [Advil] 400 mg PO UD PRN 08/21/19 09/11/19 History sildenafil 100 mg PO UD PRN 08/21/19 09/11/19 History brimonidine [Alphagan P] 1 drp OPHTHALMIC (EYE) BID 09/11/19 09/11/19 History Past Med/Surg History Medical History Bone spur NECK CAD (coronary artery disease) mild, non-obstructive CAD per 03/2019 cath Decreased muscle strength UPPER AND LOWER BODY, HAS HAD SIGNIFICANT MUSCLE ATROPHY SINCE PREVIOUS BACK SURGERY. Diabetes NIDDM Neck problem Prostate cancer s/p total prostatectomy 06/2019 Sciatica s/p lumbar injection 07/01/19 Sleep apnea CPAP, using inconsistently Surgical History H/O knee surgery CYST REMOVED, R History of appendectomy History of cardiac cath X3 - 2004, 2004, 03/2019 - no stents History of carpal tunnel surgery of right wrist History of colonoscopy History of hernia surgery inguinal (right)- AGE 6 History of lumbar fusion History of prostatectomy S/P 07/28/19 (ROBOTIC) History of repair of left rotator cuff History of repair of right rotator cuff History of vasectomy Family History Father Diabetes Heart disease Mother Hypertension Heart disease Brother Stomach cancer Social History Preferred Language: Lithuanian Communication Ability: Effective 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 Results & Data Vital Signs (Past 12 Hours) Vital Signs Temp Pulse Resp BP Pulse Ox 09/11/19 06:46 36.6 C 85 18 111/73 96
[2019-09-11] MEDS ORDERED: KETAMINE HCL INJ 50 MG/ML 10 ML VIAL ONE (08:17)
[2019-09-11] MEDS ORDERED: FLOSEAL HEMOSTATIC MATRIX 10ML TOP ONE (09:55)
[2019-09-11] MEDS ORDERED: GLYCOPYRROLATE 0.2 MG/ML VIAL ONE (10:06)
[2019-09-11] MEDS ORDERED: NEOSTIGMINE METHYLSULFATE 5 MG/5 ML SYR ONE (10:06)
--- NOTE | 2019-09-11 10:07 | Operative Report ---
Post Operative Report Pre & Post Diagnosis Operation Date: 09/11/19 07:15 Pre-Op Diagnosis: Cervical spinal stenosis with myelopathy Post-Op Diagnosis: Same I identified the patient and participated in the time-out.: Yes Procedure Operation Date: 09/11/19 07:15 Actual Procedures #1 anterior cervical corpectomy C6 with bilateral foraminotomies. #2 anterior cervical discectomy with bilateral foraminotomies C4-C5. #3 anterior cervical arthrodesis C4-C5 and C5-C7. #4 placement of peek cage 19 mm in height at C5-C7 and 9 mm in height at C4-C5. #5 placement locally harvested morselized autograft combined with DBM and interbody cages. #6 application of goodrich plate and screws from CT 4 to C7. Surgeon Arnol Snyder, DO [employer] Player Celestino Andrews Estimated Blood Loss 50 Findings Consistent with Post-Op Diagnosis Specimens None Indications This is a 69-year-old male well-known to me that presents with marked decline in neurologic status and evidence of severe cervical myelopathy. Subsequently we elected undergo urgent anterior cervical decompression and fusion. Description of Procedure Patient was met with identified informed consent obtained. Patient was then taken to the operative suite underwent intubation placed in a supine position the Christopher table the head Castillo billet header. All bony prominences well- padded eyes inspected to ensure no external pressure placed upon the. This point the anterior cervical spine was prepped and draped in normal sterile fashion. With the assistance of fluoroscopy identified the C5-6 disc space and a transverse incision was placed on the right anterior aspect of the cervical spine overlying this region. Sharp dissection with the assistance of bipolar electrocautery was performed to expose the anterior cervical spine from C4-C7. Self-retaining retractors placed. Then performed a complete discectomy of C5-6 followed by C6-7. Then placed distracting pins in C5 and C7 to distract across the C6 vertebral body. A complete corpectomy was then performed removing all posterior annular fibers longitudinal ligament and all bony spurs. Bilateral foraminotomies performed. Endplates were then burred to subcortical bleeding bone and a 19 mm peek cage filled with local autograft and DBM tapped in position. Distracting apparatus was removed and I proceeded to see for C5. Again complete discectomy performed out to the uncovertebral joints bilaterally. Fannin distracting pins again utilized. Removed all posterior annular fibers longitudinal ligament bilateral foraminotomies performed. Endplates were then burred to subcortical bleeding bone and a 9 mm peek cage filled with local autograft and DBM tapped in position. Distracting apparatus was removed and all anterior osteophytes burred to a smooth cortical surface. 5 complete screws were then applied with the assistance of fluoroscopy. Incision was then copiously irrigated and 10 round MAMTA drain inserted. Is then closed with 2-0 Vicryl in the fashion of 4 Monocryl for final closure. Steri-Strip sterile dressings placed. Patient will continue PACU stable addition. Please note Celestino record was present at the entire procedure about the patient positioning complex portions of the surgery and final skin closure. Lastly spinal cord monitoring was utilized that the procedure no changes noted. I attest to the content of the Intraoperative Record and any orders documented therein. Any exceptions are noted below.
--- NOTE | 2019-09-11 10:26 | Fluoroscopy Report ---
FL cervical 2-3V CLINICAL HISTORY: ACDF C4-7 CORPECTOMY C5/C6 COMPARISON STUDY: None. FLUOROSCOPY TIME: 10 seconds.. FINDINGS: 4 fluoroscopic spot images of the cervical spine demonstrate anterior cervical discectomy a nd fusion from C4 through C7 with a C6 corpectomy. The hardware appears intact. IMPRESSION: Fluoroscopy provided for C4-C7 ACDF. ACT 112: Negative or not required by law. Electronically signed by: Obi Betancourt M.D. 09/11/2019 10:24 AM
--- NOTE | 2019-09-11 11:25 | Anesthesiology Progress Note ---
Date of Service September 11, 2019 Anesthesia Post Procedure Vital Signs Vital Signs: Temp Pulse Pulse Resp BP Pulse Ox 09/11/19 11:20 36.7 C 69 13 113/70 99 09/11/19 11:10 65 15 114/65 99 09/11/19 11:00 72 13 113/69 99 09/11/19 10:50 75 17 118/69 99 09/11/19 10:40 75 19 112/70 100 09/11/19 10:30 75 13 114/70 100 09/11/19 10:24 36.1 C L 75 14 114/68 94 09/11/19 06:46 36.6 C 85 18 111/73 96 Transfer of Care Handoff Completed per policy Notes Mental Status: alert / awake / arousable and participated in evaluation Patient Amnestic to Procedure: Yes Nausea / Vomiting: adequately controlled Pain: adequately controlled Airway Patency, RR, SpO2: stable & adequate BP & HR: stable & adequate Hydration State: stable & adequate Anesthetic Complications: no major complications apparent
[2019-09-11] MEDS ORDERED: HYDROmorphone INJ 1 MG/ML SYRINGE IV PRN (12:00)
[2019-09-11] MEDS ORDERED: HYDROmorphone INJ 0.5 MG/0.5 ML SYR IV PRN (12:00)
[2019-09-11] MEDS ORDERED: FAMOTIDINE 20 MG TAB PO PRN (12:00)
[2019-09-11] MEDS ORDERED: DEXAMETHASONE SOD PHOSPHATE 8 MG in SYRINGE 0 ML IV PRN (12:00)
[2019-09-11] MEDS ORDERED: LORazepam 0.5 MG/1 ML VIAL IV PRN (12:00)
[2019-09-11] MEDS ORDERED: SOD PHOSPHATE/SOD BIPHOSPHATE ENEMA 132 ML BTL PR PRN (12:00)
[2019-09-11] MEDS ORDERED: ONDANSETRON 4 MG OD TAB PO PRN (12:00)
[2019-09-11] MEDS ORDERED: NALOXONE HCL 0.4 MG/1 ML VIAL/CARP IV PRN (12:00)
[2019-09-11] MEDS ORDERED: DO NOT ADMINISTER PNEUMOCOCCAL VACCINE PRN (12:00)
[2019-09-11] MEDS ORDERED: ACETAMINOPHEN 1,000 MG/100 ML VIAL IV PRN (12:00)
[2019-09-11] MEDS ORDERED: DO NOT ADMINISTER FLU VACCINE PRN (12:00)
[2019-09-11] MEDS ORDERED: ALUMINUM/MAGNESIUM SUSP 30 ML UDC PO PRN (12:00)
[2019-09-11] MEDS ORDERED: MAGNESIUM HYDROXIDE SUSP 30 ML UDC PO PRN (12:00)
[2019-09-11] MEDS ORDERED: LORazepam 0.5 MG TAB PO PRN (12:00)
[2019-09-11] MEDS: SODIUM CHLORIDE 0.9% 1000ML 1,000 ML IV SCH ×2 (12:00→21:50)
[2019-09-11] MEDS ORDERED: RACEPINEPHRINE 2.25% NEBU SOLN 0.5 ML VIAL INH PRN (12:00)
[2019-09-11] MEDS ORDERED: TRAMADOL HCL 50 MG TABLET PO PRN (12:00)
[2019-09-11] MEDS ORDERED: ACETAMINOPHEN 500 MG TAB PO PRN (12:00)
[2019-09-11] MEDS ORDERED: GLUCOSE 10 TABS/TUBE PO PRN (13:07)
[2019-09-11] MEDS ORDERED: DEXTROSE 50% 50 ML SYRINGE IV PRN (13:07)
[2019-09-11] MEDS ORDERED: CARBOHYDRATES FOR HYPOGLYCEMIA PO PRN (13:07)
[2019-09-11] MEDS ORDERED: GLUCAGON FOR INJ 1 MG VIAL SQ PRN (13:07)
[2019-09-11] MEDS ORDERED: GLUCOSE 40% GEL 15 GM TUBE PO PRN (13:07)
[2019-09-11] MEDS ORDERED: INSULIN GLARGINE SOLOSTAR 100 UNITS/ML 3 ML PEN SC ONE (13:09)
[2019-09-11] MEDS: GABAPENTIN 300 MG CAP PO SCH ×2 (13:49→21:46)
[2019-09-11] MEDS: OXYCODONE HCL IR 5 MG TAB (IMMEDIATE RELEASE) PO PRN (16:01)
[2019-09-11] MEDS: CEFAZOLIN 2000MG 2,000 MG/15 ML SYR IV SCH (16:01)
[2019-09-11] MEDS ORDERED: glipiZIDE 5 MG TAB PO SCH (16:30)
--- NOTE | 2019-09-11 16:45 | Consultation ---
Date of Consultation September 11, 2019 Assessment & Plan (1) Cervical stenosis of spinal canal: (2) DMII (diabetes mellitus, type 2): (3) Prostate cancer: (4) CAD (coronary artery disease): (5) DVT prophylaxis: Supervising Physician Co-Signing Physician Notes I have seen and examined the patient and have discussed the case with the provider above. I agree with the assessment and plan as stated with the following exceptions. 69 yo M s/p ACDF earlier today, minimal pain and is tolerating PO and mentating clearly. No evidence of increased respiratory effort. Heart murmur reported to be chronic and worked up in the past per patient. Denies any symptoms right now, only some mild discomfort from the hard collar that was improved with repositioning. With known active malignancy would apply DVT prophy as early as allowable per Ortho Spine surgeon. Blood sugar is elevated, and he also was found indulging on two full sugar popsicles this afternoon with ? carb coverage for this snack. Nurses notified that he should stick to low sugar snacks and consider covering carbohydrates. Cont basal/bolus insulin while hospitalized. Appreciate the consultation. The [facility] Hospitalist team will continue to follow him throughout this admission. DO Wayne History of Present Illness Attending Physician: Arnol Snyder DO Allergies Allergy/AdvReac Type Severity Reaction Status Date / Time monosodium glutamate Allergy Unknown TROUBLE Verified 09/11/19 06:29 BREATHING, N/V cat dander AdvReac Unknown ITCHY EYES Verified 09/11/19 06:29 Home Medications Home Medications Medication Instructions Recorded Confirmed Type Jardiance 12.5 mg PO QAM 07/07/19 09/11/19 History aspirin [Aspir-81] 81 mg PO QAM 07/07/19 09/11/19 History enalapril maleate [Vasotec] 10 mg PO QAM 07/07/19 09/11/19 History gabapentin 300 mg PO TID 07/07/19 09/11/19 History glipizide 10 mg PO BID 07/07/19 09/11/19 History latanoprost [Xalatan] 1 drp OPHTHALMIC (EYE) HS 07/07/19 09/11/19 History metformin 1,000 mg PO BID 07/07/19 09/11/19 History multivitamin 1 cap PO DAILY 07/07/19 09/11/19 History omega 5-[id number]-fish oil [Fish Oil] 1 cap PO DAILY 07/07/19 09/11/19 History simvastatin 20 mg PO HS 07/07/19 09/11/19 History Cbd Gummies 3 tab PO DAILY 08/21/19 09/11/19 History acetaminophen [Tylenol Extra 1,000 mg PO UD PRN 08/21/19 09/11/19 History Strength] ibuprofen [Advil] 400 mg PO UD PRN 08/21/19 09/11/19 History sildenafil 100 mg PO UD PRN 08/21/19 09/11/19 History brimonidine [Alphagan P] 1 drp OPHTHALMIC (EYE) BID 09/11/19 09/11/19 History linagliptin [Tradjenta] 5 mg PO DAILY 09/11/19 09/11/19 History Patient History Medical History Bone spur NECK CAD (coronary artery disease) mild, non-obstructive CAD per 03/2019 cath Decreased muscle strength UPPER AND LOWER BODY, HAS HAD SIGNIFICANT MUSCLE ATROPHY SINCE PREVIOUS BACK SURGERY. Diabetes NIDDM HTN (hypertension) Irritable bowel syndrome Kidney stones Neck problem Prostate cancer s/p total prostatectomy 06/2019 Sciatica s/p lumbar injection 07/01/19 Sleep apnea CPAP, using inconsistently Surgical History H/O knee surgery CYST REMOVED, R History of appendectomy History of cardiac cath X3 - 2003, 2004, 03/2019 - no stents History of carpal tunnel surgery of right wrist History of colonoscopy History of hernia surgery inguinal (right)- AGE 6 History of lumbar fusion History of prostatectomy S/P 07/28/19 (ROBOTIC) History of repair of left rotator cuff History of repair of right rotator cuff History of vasectomy S/P prostatectomy Family History Father Diabetes Heart disease Mother Hypertension Heart disease Brother Stomach cancer Social History Preferred Language: Nepali Communication Ability: Effective 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 Beliefs That Will Affect Care: None marital status: Current Living Situation: Spouse current occupational status: retired Other Information That Helps Us Care for You: No Feels Safe at Home: Yes Smoking Status: Never smoker Do You Dip or Chew Tobacco: No ; Hx Alcohol Use: No Hx Substance Use: No Diet Comment: low sugar Review of Systems Review of Systems: All systems reviewed & are unremarkable except as noted in HPI & below Physical Exam Physical Exam: CONSTITUTIONAL: WNWD, vitals as above, generally well- appearing EYES: normal conjunctivae, no scleral icterus ENT: external ear and nose normal, oropharynx clear, MMM NECK: hard collar in place RESPIRATORY: clear to auscultation bilaterally, no crackles, rales or wheezes, normal respiratory effort CARDIOVASCULAR: regular rate and rhythm, 3/6 KEVIN at LSB, no gallops or rubs, no JVD, no peripheral edema GASTROINTESTINAL: soft, nontender, nondistended MUSCULOSKELETAL: strength 5/5 throughout, head is normocephalic and atraumatic SKIN: warm and dry, surgical wound, anterior neck covered with gauze that is c/d/i. NEUROLOGIC: No facial palsy, no dysarthria. CN 2-12 grossly intact, normal cog nition, normal speech, no gross focal deficits. PSYCHIATRIC: alert cooperative and oriented Results & Data ([facility]) Vital Signs (Past 12 Hours) Vital Signs Temp Pulse Pulse Pulse Resp BP BP 09/11/19 15:21 36.3 C L 93 H 16 105/67 09/11/19 13:45 93 H 14 119/66 09/11/19 12:49 83 15 115/71 09/11/19 12:15 36.5 C 80 16 113/69 09/11/19 12:00 36.2 C L 76 16 109/72 09/11/19 11:30 72 13 109/68 09/11/19 11:20 36.7 C 69 13 113/70 09/11/19 11:10 65 15 114/65 09/11/19 11:00 72 13 113/69 09/11/19 10:50 75 17 118/69 09/11/19 10:40 75 19 112/70 09/11/19 10:30 75 13 114/70 09/11/19 10:24 36.1 C L 75 14 114/68 09/11/19 06:46 36.6 C 85 18 111/73 Pulse Ox 09/11/19 15:21 96 09/11/19 13:45 2 L 09/11/19 12:49 94 09/11/19 12:15 96 09/11/19 12:00 95 09/11/19 11:30 96 09/11/19 11:20 99 09/11/19 11:10 99 09/11/19 11:00 99 09/11/19 10:50 99 09/11/19 10:40 100 09/11/19 10:30 100 09/11/19 10:24 94 09/11/19 06:46 96 Medications Administered Current Inpatient Medications Acetaminophen (Tylenol) 1,000 mg PO PREOP [facility]ELAND Stop: 09/11/19 18:00 Last Admin: 09/11/19 07:00 Dose: 1,000 mg Documented by: Acetaminophen (Tylenol) 1,000 mg PO Q8H PRN PRN Reason: MILD Pain Scale 1,2,3 & Pre PT Stop: 10/11/19 11:59 Al Hydrox/Mg Hydrox/Simethicone (Maalox) 30 ml PO Q6H PRN PRN Reason: Dyspepsia Stop: 10/11/19 11:59 Aspirin (Ecotrin Ectab) 81 mg PO QAM [facility] Stop: 10/12/19 08:59 Bisacodyl (Dulcolax) 10 mg UT DAILY PRN PRN Reason: Constipation Stop: 10/13/19 10:08 Celecoxib (Celebrex) 200 mg PO PREOP LELAND Stop: 09/11/19 18:00 Last Admin: 09/11/19 07:00 Dose: 200 mg Documented by: Dextrose (Dextrose 50%) 25 - 50 ml IV UD PRN; Protocol PRN Reason: Hypoglycemia Protocol Stop: 10/11/19 13:06 Diphenhydramine HCl (Benadryl Capsule) 25 mg PO Q6H PRN PRN Reason: Allergic Rhinitis/Insomnia Stop: 10/11/19 11:59 Enalapril Maleate (Vasotec) 10 mg PO QAM [facility] Stop: 10/12/19 08:59 Epinephrine (Raccemic Epinephrine 2.25% 0.5ml) 0.5 ml INH NOW PRN PRN Reason: if stridor present Stop: 10/11/19 11:59 Famotidine (Pepcid) 20 mg PO Q12H PRN PRN Reason: Dyspepsia Stop: 10/11/19 11:59 Gabapentin (Neurontin) 300 mg PO PREOP LELAND Stop: 09/11/19 18:00 Last Admin: 09/11/19 07:00 Dose: 300 mg Documented by: Gabapentin (Neurontin) 300 mg PO TID [facility]AND Stop: 10/11/19 13:59 Last Admin: 09/11/19 13:49 Dose: 300 mg Documented by: Glucagon (Glucagen) 1 mg SQ UD PRN; Protocol PRN Reason: Hypoglycemia Protocol Stop: 10/11/19 13:06 Glucose (Dex4 Glucose) 4 - 8 tabs PO UD PRN; Protocol PRN Reason: Hypoglycemia Protocol Stop: 10/11/19 13:06 Glucose (Glucose 40%) 15 - 30 gm PO UD PRN; Protocol PRN Reason: Hypoglycemia Protocol Stop: 10/11/19 13:06 Hydromorphone HCl (Dilaudid) 0.5 mg IV Q3H PRN PRN Reason: MOD pain (scale 4-6) & Pre PT Stop: 09/25/19 11:59 Hydromorphone HCl (Dilaudid) 1 mg IV Q3H PRN PRN Reason: severe pain (scale 7-10) Stop: 09/25/19 11:59 Hydroxyzine HCl (Vistaril) 25 mg PO Q8H PRN PRN Reason: Anxiety Stop: 10/11/19 11:59 Lactated Ringer's (Lr) 1,000 mls @ 15 mls/hr IV .Q24H [facility]ELAND Stop: 09/12/19 05:59 Last Infusion: 09/11/19 07:42 Dose: Infused Documented by: Cefazolin Sodium (Ancef 1000mg) 1,000 mg in 7.5 mls @ 2.5 mls/min IV PREOP LELAND; Protocol Stop: 09/11/19 18:00 Last Admin: 09/11/19 07:42 Dose: 2.5 mls/min Documented by: Acetaminophen (Ofirmev) 1,000 mg in 100 mls @ 400 mls/hr IV Q8H PRN PRN Reason: Pain Rating 1-3 & Pre PT Stop: 09/12/19 10:10 Dexamethasone Sodium Phosphate (8 mg/ Syringe) 2 mls @ 1 mls/min IV NOW PRN PRN Reason: stridor Stop: 10/11/19 11:59 Lorazepam (Ativan) 0.5 mg in 1 mls @ 1 mls/min IV Q8H PRN PRN Reason: Sedation/Anxiety Stop: 10/11/19 11:59 Sodium Chloride (Nss 1000ml) 1,000 mls @ 100 mls/hr IV .Q10H [facility]AND Stop: 10/11/19 11:59 Last Admin: 09/11/19 12:00 Dose: 100 mls/hr Documented by: Promethazine HCl 12.5 mg/ (Sodium Chloride) 50.5 mls @ 202 mls/hr IV Q6H PRN PRN Reason: Nausea &/or Vomiting Stop: 10/11/19 11:59 Cefazolin Sodium (Ancef 2000mg) 2,000 mg in 15 mls @ 3.75 mls/min IV Q8H LELAND; Protocol Stop: 09/12/19 00:03 Last Admin: 09/11/19 16:01 Dose: 3.75 mls/min Documented by: Influenza Virus Vaccine Quadrival (Flu Vaccine, Do Not Administer) 1 ea N/A PRN PRN PRN Reason: Notification Stop: 10/11/19 11:59 Insulin Aspart (Novolog Flexpen) 0 units SC ACHS LELAND Stop: 10/11/19 16:29 Insulin Glargine (Lantus Solostar Pen) 0 - 15 units SC BID [facility]AND Stop: 10/11/19 20:59 Latanoprost (Xalatan Oph) 1 drops OP HS [facility]AND Stop: 10/11/19 20:59 Lorazepam (Ativan) 0.5 mg PO Q8H PRN PRN Reason: sedation/anxiety Stop: 10/11/19 11:59 Magnesium Hydroxide (Milk Of Magnesia) 30 ml PO Q24H PRN PRN Reason: Constipation Stop: 10/11/19 11:59 Metoclopramide HCl (Reglan) 10 mg IV Q6H PRN PRN Reason: Nausea &/or Vomiting Stop: 10/11/19 11:59 Miscellaneous (Carbohydrates For Hypoglycemia) 15 - 30 gm PO UD PRN PRN Reason: Hypoglycemia Protocol Stop: 10/11/19 13:06 Naloxone HCl (Narcan) 0.1 mg IV Q5M PRN PRN Reason: Oversedation/respiratory dep Stop: 10/11/19 11:59 Alphagan P 0.1%~Non- Formulary Patient's Own Med 1 ea OP BID LELAND Stop: 10/11/19 20:59 Ondansetron HCl (Zofran) 4 mg IV Q6H PRN PRN Reason: Nausea &/or Vomiting Stop: 10/11/19 11:59 Ondansetron HCl (Zofran Odt) 4 mg PO Q6H PRN PRN Reason: Nausea Stop: 10/11/19 11:59 Oxycodone HCl (Roxicodone Immediate Rel) 5 - 10 mg PO Q4H PRN PRN Reason: Pain & Pre PT Stop: 09/25/19 11:59 Last Admin: 09/11/19 16:01 Dose: 5 mg Documented by: Pneumococcal Polyvalent Vaccine (Pneumococcal Vacc, Do Not Administer) 1 ea N/A PRN PRN PRN Reason: Notification Stop: 10/11/19 11:59 Polyethylene Glycol (Miralax Powder Packet) 17 gm PO Q6 [facility] Stop: 10/12/19 05:59 Senna/Docusate Sodium (Senokot S) 2 tab PO HS LELAND Stop: 10/11/19 20:59 Simvastatin (Zocor) 20 mg PO HS LELAND Stop: 10/11/19 20:59 Sodium Biphosphate/Sodium Phosphate (Fleet Enema) 132 ml UT ONE PRN PRN Reason: Constipation Stop: 10/11/19 11:59 Tramadol HCl (Ultram) 50 - 100 mg PO Q4H PRN PRN Reason: Moderate-Severe pain & Pre PT Stop: 10/11/19 11:59
--- NOTE | 2019-09-11 17:48 | Hospitalist Consultation ---
Date of Consultation September 11, 2019 Assessment & Plan (1) Cervical stenosis of spinal canal: - POD#0 C4-C7 anterior cervical discectomy and fusion, C5 and C6 corpectomy by Dr. Snyder - activity and wound care orders as per ortho - pain control with bowel regimen - PT/OT - monitor H/H for acute blood loss anemia and transfuse blood products PRN - EBL 50 cc (2) DMII (diabetes mellitus, type 2): -Hgb A1c 8.8 06/2019 -Hold oral agents and utilize Lantus and NovoLog per protocol while hospitalized (3) HTN (hypertension): -BP stable, continue enalapril (4) CAD (coronary artery disease): -Cardiac cath 03/2019: Mild to moderate CAD, nonobstructive, medical management recommended -Continue aspirin (cleared by spine orthopedics) and statin (5) DVT prophylaxis: -Teds/SCDs as per spine orthopedics Thank you for this consultation. We will follow the patient with you during their hospital stay. You can reach a member of the [facility] Hospitalist Team 14/01 via pager @ [phone]. Supervising Physician Co-Signing Physician Notes I have seen and examined the patient and have discussed the case with the provider above. I agree with the assessment and plan as stated with the following exceptions. 69 yo M s/p ACDF earlier today, minimal pain and is tolerating PO and mentating clearly. No evidence of increased respiratory effort. Heart murmur reported to be chronic and worked up in the past per patient. Denies any symptoms right now, only some mild discomfort from the hard collar that was improved with repositioning. Physical exam as above. With known active malignancy would apply DVT prophy as early as allowable per Ortho Spine surgeon. Blood sugar is elevated, and he also was found indulging on two full sugar popsicles this afternoon with ? carb coverage for this snack. Nurses notified that he should stick to low sugar snacks and consider covering carbohydrates. Cont basal/bolus insulin while hospitalized. Appreciate the consultation. The [facility] Hospitalist team will continue to follow him throughout this admission. DO Wayne History of Present Illness Reason for Consultation: Postop medical management Requesting Physician: Dr. Snyder Attending Physician: Dr. Black History of Present Illness 69-year-old male who is status post C4-C7 anterior cervical discectomy and fusion, C5 and C6 corpectomy today by Dr. Snyder. Postoperatively, the patient is doing well. He reports his pain is well controlled. Denies difficulty swallowing or feelings of throat swelling. No shortness of breath or stridor. Denies chest pain. No lightheadedness or dizziness. Denies abdominal pain and nausea. Allergies Allergy/AdvReac Type Severity Reaction Status Date / Time monosodium glutamate Allergy Unknown TROUBLE Verified 09/11/19 06:29 BREATHING, N/V cat dander AdvReac Unknown ITCHY EYES Verified 09/11/19 06:29 Home Medications Home Medications Medication Instructions Recorded Confirmed Type Jardiance 12.5 mg PO QAM 07/07/19 09/11/19 History aspirin [Aspir-81] 81 mg PO QAM 07/07/19 09/11/19 History enalapril maleate [Vasotec] 10 mg PO QAM 07/07/19 09/11/19 History gabapentin 300 mg PO TID 07/07/19 09/11/19 History glipizide 10 mg PO BID 07/07/19 09/11/19 History latanoprost [Xalatan] 1 drp OPHTHALMIC (EYE) HS 07/07/19 09/11/19 History metformin 1,000 mg PO BID 07/07/19 09/11/19 History multivitamin 1 cap PO DAILY 07/07/19 09/11/19 History omega 7-rdd-sqj-fish oil [Fish Oil] 1 cap PO DAILY 07/07/19 09/11/19 History simvastatin 20 mg PO HS 07/07/19 09/11/19 History Cbd Gummies 3 tab PO DAILY 08/21/19 09/11/19 History acetaminophen [Tylenol Extra 1,000 mg PO UD PRN 08/21/19 09/11/19 History Strength] ibuprofen [Advil] 400 mg PO UD PRN 08/21/19 09/11/19 History sildenafil 100 mg PO UD PRN 08/21/19 09/11/19 History brimonidine [Alphagan P] 1 drp OPHTHALMIC (EYE) BID 09/11/19 09/11/19 History linagliptin [Tradjenta] 5 mg PO DAILY 09/11/19 09/11/19 History Patient History Medical History Bone spur NECK CAD (coronary artery disease) mild, non-obstructive CAD per 03/2019 cath Decreased muscle strength UPPER AND LOWER BODY, HAS HAD SIGNIFICANT MUSCLE ATROPHY SINCE PREVIOUS BACK SURGERY. Diabetes NIDDM HTN (hypertension) Irritable bowel syndrome Kidney stones Neck problem Prostate cancer s/p total prostatectomy 06/2019 Sciatica s/p lumbar injection 07/01/19 Sleep apnea CPAP, using inconsistently Surgical History H/O knee surgery CYST REMOVED, R History of appendectomy History of cardiac cath X3 - 2003, 2004, 03/2019 - no stents History of carpal tunnel surgery of right wrist History of colonoscopy History of hernia surgery inguinal (right)- AGE 6 History of lumbar fusion History of prostatectomy S/P 07/28/19 (ROBOTIC) History of repair of left rotator cuff History of repair of right rotator cuff History of vasectomy S/P prostatectomy Family History Father Diabetes Heart disease Mother Hypertension Heart disease Brother Stomach cancer Social History Preferred Language: Rwandan Communication Ability: Effective Client Relations Representative Required: No Beliefs That Will Affect Care: None marital status: Current Living Situation: Spouse current occupational status: retired Other Information That Helps Us Care for You: No Feels Safe at Home: Yes Smoking Status: Never smoker Do You Dip or Chew Tobacco: No ; Hx Alcohol Use: No Hx Substance Use: No Diet Comment: low sugar Review of Systems Review of Systems: ROS per HPI, all other systems reviewed and negative Physical Exam Constitutional: WD/WN, vitals as above Eyes: PERRL, conjunctivae normal, anicteric sclerae ENMT: external ear and nose normal, oropharynx normal Neck: S/p neck surgery, anterior dressing dry intact, C-spine collar in place, drain in place draining bloody drainage Respiratory: normal respiratory effort, lungs clear to auscultation Cardiovascular: Rate/Rhythm: regular rate and regular rhythm Heart Sounds: + murmur (Grade 2/6, systolic) Vessels: normal peripheral pulses Extremities: no edema Gastrointestinal (Abdomen): normal bowel sounds, soft, nontender, no hepatosplenomegaly Musculoskeletal: no cyanosis or clubbing, extremities motor strength 5/5 Skin: no rashes, warm and dry Neurologic: PERRL, EOMI, accommodation nl, no face palsy, no dysarthria Psychiatric: A+Ox3, euthymic affect Results & Data ([facility]) Vital Signs (Past 12 Hours) Vital Signs Temp Pulse Pulse Pulse Resp BP BP 09/11/19 16:44 36.4 C L 87 16 92/57 L 09/11/19 15:21 36.3 C L 93 H 16 105/67 09/11/19 13:45 93 H 14 119/66 09/11/19 12:49 83 15 115/71 09/11/19 12:15 36.5 C 80 16 113/69 09/11/19 12:00 36.2 C L 76 16 109/72 09/11/19 11:30 72 13 109/68 09/11/19 11:20 36.7 C 69 13 113/70 09/11/19 11:10 65 15 114/65 09/11/19 11:00 72 13 113/69 09/11/19 10:50 75 17 118/69 09/11/19 10:40 75 19 112/70 09/11/19 10:30 75 13 114/70 09/11/19 10:24 36.1 C L 75 14 114/68 09/11/19 06:46 36.6 C 85 18 111/73 Pulse Ox 09/11/19 16:44 96 09/11/19 15:21 96 09/11/19 13:45 2 L 09/11/19 12:49 94 09/11/19 12:15 96 09/11/19 12:00 95 09/11/19 11:30 96 09/11/19 11:20 99 09/11/19 11:10 99 09/11/19 11:00 99 09/11/19 10:50 99 09/11/19 10:40 100 09/11/19 10:30 100 09/11/19 10:24 94 09/11/19 06:46 96
[2019-09-11] MEDS: INSULIN ASPART 100 UNITS/ML 3 ML PEN SC SCH ×2 (18:36→21:38)
[2019-09-11] MEDS ORDERED: DOCUSATE SODIUM/SENNA 50/8.6MG TAB PO SCH (21:00)
[2019-09-11] MEDS ORDERED: LATANOPROST 0.005% OP SOLN 2.5 ML BTL OP SCH (21:00)
[2019-09-11] MEDS ORDERED: SIMVASTATIN 20 MG TAB PO SCH (21:00)
[2019-09-11] MEDS: INSULIN GLARGINE SOLOSTAR 100 UNITS/ML 3 ML PEN SC SCH (21:42)
[2019-09-11] MEDS: ALPHAGAN P 0.1% OP SCH (21:47)
[2019-09-11] MEDS ORDERED: INSULIN ASPART 100 UNITS/ML 3 ML PEN SC ONE (23:59)
[2019-09-12] MEDS: CEFAZOLIN 2000MG 2,000 MG/15 ML SYR IV SCH (00:18)
[2019-09-12] MEDS: OXYCODONE HCL IR 5 MG TAB (IMMEDIATE RELEASE) PO PRN (00:18)
[2019-09-12] MEDS ORDERED: INSULIN ASPART 100 UNITS/ML 3 ML PEN SC ONE (04:00)
[2019-09-12 05:48] LABS: Hematocrit (blood only) 41.2 % (42-52); Hemoglobin 13.7 g/dL (14.0-18.0); Mean Corpuscular Hemoglobin 31.4 pg (25-34); Mean Corpuscular Hgb Conc 33.3 g/dL (32-36); Mean Corpuscular Volume 94.3 fL (80-100); Mean Platelet Volume 8.9 fL (7.4-10.4); Platelet Count 222 K/uL (130-400); RDW Coefficient of Variation 13.5 % (11.5-14.5); RDW Standard Deviation 46.9 fL (36.4-46.3); Red Blood Count 4.37 M/uL (4.7-6.1); White Blood Count 10.19 K/uL (4.8-10.8)
[2019-09-12 06:23] LABS: BUN Creatinine Ratio 11.7 (10-20); Calcium 8.1 mg/dl (8.5-10.1); Creatinine Clr Calc Pharmacy 91.2 ml/min; Est GFR (African American) 109.2; Est GFR (Non-African American) 94.3; Potassium 3.5 mmol/L (3.5-5.1)
[2019-09-12] MEDS: POLYETHYLENE (MIRALAX) 17 GM PACK PO SCH ×2 (06:25→12:14)
[2019-09-12] MEDS: SODIUM CHLORIDE 0.9% 1000ML 1,000 ML IV SCH (08:41)
[2019-09-12] MEDS: GABAPENTIN 300 MG CAP PO SCH ×2 (08:42→13:22)
[2019-09-12] MEDS: ALPHAGAN P 0.1% OP SCH (08:43)
[2019-09-12] MEDS: INSULIN GLARGINE SOLOSTAR 100 UNITS/ML 3 ML PEN SC SCH (08:46)
[2019-09-12] MEDS: INSULIN ASPART 100 UNITS/ML 3 ML PEN SC SCH ×2 (08:49→12:54)
[2019-09-12] MEDS ORDERED: ASPIRIN 81 MG ECTAB PO SCH (09:00)
[2019-09-12] MEDS ORDERED: ENALAPRIL MALEATE 10 MG TAB PO SCH (09:00)
--- NOTE | 2019-09-12 10:34 | Discharge Summary ---
Date of Service September 12, 2019 Admission HPI Per Admitting Provider This is a 69-year-old male presents with chronic persistent neck and arm symptoms after failing extensive course of nonoperative care is here for surgical intervention. Principal Diagnosis Cervical spinal stenosis with myelopathy Discharge Data Allergies Allergy/AdvReac Type Severity Reaction Status Date / Time monosodium glutamate Allergy Unknown TROUBLE Verified 09/11/19 06:29 BREATHING, N/V cat dander AdvReac Unknown ITCHY EYES Verified 09/11/19 06:29 Consultations 09/11/19 12:00 Consult Hospitalist Routine Procedures Performed Operation Date: 09/11/19 07:15 Actual Procedures p C4-C7 Anterior Cervical Discectomy Fusion, C5 And C6 Corpectomy, Spinal Cord Mointoring(Not Applicable) - Arnol Snyedr DO Ordered Studies 09/11/19 07:15 FL cervical 2-3V Routine FL fluoroscopy <1hr Routine Hospital Course (1) Cervical stenosis of spinal canal: Patient went anterior cervical corpectomy fusion tolerated this well was taken to the orthopedic floor postoperatively postop day #1 he is swallowing well no hoarseness MAMTA drain decreasing appropriately. Arm symptoms markedly improved. Excellent strength testing. Subsequently was discharged home. Discharge orders instructions were on the chart for further view. Total Time Total Time Spent Total Time Spent (In Minutes): 20 minutes Discharge Plan Discharge Items Patient Disposition: Home - Self-Care Reason For Visit: Spinal Stenosis, Cervical Region Discharge Diagnosis: Cervical spinal stenosis with myelopathy Activity: As commented below Non-emergency contact: Primary Care Provider Call non-emergency contact if: you have any medication questions Follow-up/Referrals: Tran Allen DO [Primary Care Provider] - Diet: Regular Addtl Attending Provider Instructions: ACTIVITY RECOMMENDATIONS: SELF CARE INSTRUCTIONS AFTER CERVICAL FUSIONS 1. No smoking. Smoking drastically decreases the chance of a solid fusion. 2. No bending, lifting more than 5 pounds, or twisting (roll like a log when turning in bed). 3. You may shower 3 days after surgery. Thoroughly dry wound. Do not soak in the tub. 4. Cervical collar: Must be worn at all times including sleeping. You may remove the brace only to bath, eat and if you are sitting in a recliner. 5. Please walk as much as you can for exercise. Gradually increase the distance that you walk as your endurance increases. SPECIAL CARE INSTRUCTIONS: VERY IMPORTANT TO READ AND REVIEW A. Do not take any anti-inflammatory medications (i.e. Indocin, Advil, Aspirin, Naprosyn, Aleve, Motrin, etc.) as these may inhibit the chance of a solid fusion. Tylenol is okay to take. B. Your surgical incision has been closed with a cosmetic suture under the skin that will dissolve in about 6 weeks. In 14 days, you can use a pair of clean scissors and cut the suture that is left outside of the skin at the ends of your incision. C. Complications are uncommon, but please contact us if you have any signs or symptoms of: 1. wound infection (fever higher than 102.5 degrees F, redness, separation of wound, drainage, or increasing pain from the incision) 2. blood clots in legs (pain, swelling, redness and warmth in legs) 3. urinary tract infection (fever higher than 102.5 degrees, burning upon urination or increased frequency of urination) 4. nerve problems (inability to walk on your toes or heels, numbness, loss of bowel or bladder control) 5. any other symptoms that concern you. D. Please call the office at if you have any concerns or questions about your operation or recovery. MANAGING PAIN AFTER SPINAL SURGERY 1. Narcotic medication is intended for short-term use and will be provided for surgical pain. Surgical pain usually lasts for a period of 4-6 weeks. Narcotic medication includes Percocet, Vicodin, Darvocet, Tylenol #3 or Lortab. 2. Longer-term pain is more appropriately treated with non-narcotic medication such as Tylenol ES. 3. Muscle spasm is not appropriately treated with narcotics. Muscle relaxers such as Soma, Flexeril or Skelaxin can be used along with Tylenol ES. 4. Remember that we all live with some "aches and pains". This is not unusual or uncommon after an injury or as we get older. 5. We will provide appropriate medication within the normal guidelines of their prescribed use. We will also be very cautious and aware of potential abuse and extended duration of patients' medication needs. 6. Please allow 2-3 days to process refills. Prescriptions will not be mailed but must be picked up at the office. FOLLOW UP VISIT: Keep your scheduled follow-up appointment. Any questions, please call the office at . Pending Studies at Discharge: No Stand-Alone Forms: My [facility], Smoking Cessation Medications and DC Order Prescriptions: New tramadol 50 mg tablet 50 mg PO Q6H PRN (Reason: pain, moderate) Qty: 15 RF: 0 oxycodone 5 mg tablet 5 mg PO Q6H PRN (Reason: pain, severe) Qty: 15 RF: 0 Continued acetaminophen [Tylenol Extra Strength] 500 mg Tablet 1,000 mg PO UD PRN (Reason: Pain) RF: 0 ibuprofen [Advil] 200 mg Tablet 400 mg PO UD PRN (Reason: Pain) RF: 0 sildenafil 100 mg tablet 100 mg PO UD PRN (Reason: sexual activity, POST OP CARE) RF: 0 Cbd Gummies 3 tab PO DAILY RF: 0 Alphagan P 0.1 % Drops 1 drp ophthalmic (eye) BID RF: 0 Tradjenta 5 mg tablet 5 mg PO DAILY RF: 0 latanoprost [Xalatan] 0.005 % Drops 1 drp OPHTHALMIC (EYE) HS RF: 0 enalapril maleate [Vasotec] 10 mg Tablet 10 mg PO QAM RF: 0 glipizide 10 mg Tablet 10 mg PO BID RF: 0 aspirin [Aspir-81] 81 mg Tablet,Delayed Release (Dr/Ec) 81 mg PO QAM RF: 0 simvastatin 40 mg Tablet 20 mg PO HS RF: 0 metformin 1,000 mg Tablet 1,000 mg PO BID RF: 0 gabapentin 300 mg Capsule 300 mg PO TID RF: 0 multivitamin Capsule 1 cap PO DAILY RF: 0 omega [id number] oil [Fish Oil] 1,000 mg (120 mg-180 mg) Capsule 1 cap PO DAILY RF: 0 Jardiance 25 mg Tablet 12.5 mg PO QAM RF: 0 Discharge Orders: Discharge Order (Routine); Ordered 09/12/19 Ordered By: Arnol Snyder Admission Data Admit Date/Time: 09/11/19 10:36 Attending Provider: Arnol Snyder Admit Provider: Arnol Snyder Primary Care Provider: Tran Allen Other Providers: Jed Cleaning ; Ludy Leahy
[2019-09-12] MEDS ORDERED: DEXAMETHASONE SOD PHOSPHATE 8 MG in SYRINGE 0 ML IV ONE (10:45)
--- NOTE | 2019-09-12 11:28 | Hospitalist Progress Note ---
Date of Service September 12, 2019 Assessment & Plan (1) Cervical stenosis of spinal canal: - POD#1 C4-C7 anterior cervical discectomy and fusion, C5 and C6 corpectomy by Dr. Snyder - activity and wound care orders as per ortho - pain control with bowel regimen -Management as per Ortho -Blood counts remain stable -Medically stable to be discharged (2) DMII (diabetes mellitus, type 2): -Hgb A1c 8.8 06/2019 -Hold oral agents and utilize Lantus and NovoLog per protocol while hospitalized -Blood sugars stable (3) HTN (hypertension): -BP stable, continue enalapril (4) CAD (coronary artery disease): -Cardiac cath 03/2019: Mild to moderate CAD, nonobstructive, medical management recommended -Continue aspirin (cleared by spine orthopedics) and statin -No cardiac symptoms (5) DVT prophylaxis: -Teds/SCDs as per spine orthopedics Thank you for this consultation. We will follow the patient with you during their hospital stay. You can reach a member of the [facility] Hospitalist Team 14/01 via pager @ [phone]. Medically stable to be discharged Admission and Anticipated Discharge Date Admission Date: September 11, 2019 Subjective The patient was seen and examined in medical floor He is a status post C4-C7 anterior cervical discectomy and fusion Complains some neck pain Denies any other significant symptoms Review of Systems Review of Systems: All systems reviewed and are unremarkable except as noted below Neurologic: Tingling in the right upper extremity and hand are better, tingling in the left hand is not yet better Physical Exam Physical Exam: Sitting on a chair without any apparent distress Constitutional: well developed and well nourished; no acute distress and not ill appearing Eyes: PERRL, conjunctivae normal, anicteric sclerae ENMT: external ear and nose normal, oropharynx normal Neck: Has cervical collar in place Respiratory: normal respiratory effort; no respiratory distress Auscultation: lungs clear to auscultation bilaterally Cardiovascular: Rate/Rhythm: regular rate and regular rhythm Gastrointestinal (Abdomen): Inspection/Auscultation: abdomen normal to inspection Percussion/Palpation: abdomen soft; abdomen nontender Musculoskeletal: No acute arthritis in any joints Results & Data ([facility]) Vital Signs (Past 12 Hours) Vital Signs Temp Pulse Pulse Resp BP BP Pulse Ox 09/12/19 11:12 56 L 16 94 09/12/19 10:41 36.6 C 62 59 L 18 111/67 109/72 95 09/12/19 10:11 36.6 C 59 L 18 111/67 95 09/12/19 08:30 36.4 C L 72 18 114/72 95 09/12/19 07:48 62 16 95 09/12/19 06:30 36.6 C 73 18 108/69 93 09/12/19 04:10 36.3 C L 63 16 103/64 93 09/12/19 03:45 66 16 92 09/12/19 02:25 36.5 C 70 16 102/63 94 09/12/19 00:20 36.4 C L 60 18 105/63 93 Laboratory Results Short CBC 09/12/19 Range/Units 05:24 WBC 10.19 (4.8-10.8) K/uL Hgb 13.7 L (14.0-18.0) g/dL Hct 41.2 L (42-52) % Plt Count 222 (130-400) K/uL BMP 09/12/19 05:24 Sodium 138 Potassium 3.5 Chloride 108 H Carbon Dioxide 24 BUN 9 Creatinine 0.75 Glucose 177 H Calcium 8.1 L Medications Administered Current Inpatient Medications Acetaminophen (Tylenol) 1,000 mg PO Q8H PRN PRN Reason: MILD Pain Scale 1,2,3 & Pre PT Stop: 10/11/19 11:59 Al Hydrox/Mg Hydrox/Simethicone (Maalox) 30 ml PO Q6H PRN PRN Reason: Dyspepsia Stop: 10/11/19 11:59 Aspirin (Ecotrin Ectab) [facility] Stop: 10/12/19 08:59 Last Admin: 09/12/19 08:42 Dose: 81 mg Documented by: Bisacodyl (Dulcolax) 10 mg UT DAILY PRN PRN Reason: Constipation Stop: 10/13/19 10:08 Dextrose (Dextrose 50%) 25 - 50 ml IV UD PRN; Protocol PRN Reason: Hypoglycemia Protocol Stop: 10/11/19 13:06 Diphenhydramine HCl (Benadryl Capsule) 25 mg PO Q6H PRN PRN Reason: Allergic Rhinitis/Insomnia Stop: 10/11/19 11:59 Enalapril Maleate (Vasotec) 10 mg PO QAM [facility] Stop: 10/12/19 08:59 Last Admin: 09/12/19 08:43 Dose: 10 mg Documented by: Epinephrine (Raccemic Epinephrine 2.25% 0.5ml) 0.5 ml INH NOW PRN PRN Reason: if stridor present Stop: 10/11/19 11:59 Famotidine (Pepcid) 20 mg PO Q12H PRN PRN Reason: Dyspepsia Stop: 10/11/19 11:59 Gabapentin (Neurontin) 300 mg PO TID [facility] Stop: 10/11/19 13:59 Last Admin: 09/12/19 08:42 Dose: 300 mg Documented by: Glucagon (Glucagen) 1 mg SQ UD PRN; Protocol PRN Reason: Hypoglycemia Protocol Stop: 10/11/19 13:06 Glucose (Dex4 Glucose) 4 - 8 tabs PO UD PRN; Protocol PRN Reason: Hypoglycemia Protocol Stop: 10/11/19 13:06 Glucose (Glucose 40%) 15 - 30 gm PO UD PRN; Protocol PRN Reason: Hypoglycemia Protocol Stop: 10/11/19 13:06 Hydromorphone HCl (Dilaudid) 0.5 mg IV Q3H PRN PRN Reason: MOD pain (scale 4-6) & Pre PT Stop: 09/25/19 11:59 Hydromorphone HCl (Dilaudid) 1 mg IV Q3H PRN PRN Reason: severe pain (scale 7-10) Stop: 09/25/19 11:59 Hydroxyzine HCl (Vistaril) 25 mg PO Q8H PRN PRN Reason: Anxiety Stop: 10/11/19 11:59 Dexamethasone Sodium Phosphate (8 mg/ Syringe) 2 mls @ 1 mls/min IV NOW PRN PRN Reason: stridor Stop: 10/11/19 11:59 Lorazepam (Ativan) 0.5 mg in 1 mls @ 1 mls/min IV Q8H PRN PRN Reason: Sedation/Anxiety Stop: 10/11/19 11:59 Sodium Chloride (Nss 1000ml) 1,000 mls @ 100 mls/hr IV .Q10H [facility] Stop: 10/11/19 11:59 Last Admin: 09/12/19 08:41 Dose: Not Given Documented by: Promethazine HCl 12.5 mg/ (Sodium Chloride) 50.5 mls @ 202 mls/hr IV Q6H PRN PRN Reason: Nausea &/or Vomiting Stop: 10/11/19 11:59 Influenza Virus Vaccine Quadrival (Flu Vaccine, Do Not Administer) 1 ea N/A PRN PRN PRN Reason: Notification Stop: 10/11/19 11:59 Insulin Aspart (Novolog Flexpen) 0 units SC ACHS [facility] Stop: 10/11/19 16:29 Last Admin: 09/12/19 08:49 Dose: 5 units Documented by: Insulin Glargine (Lantus Solostar Pen) 0 - 15 units SC BID [facility] Stop: 10/11/19 20:59 Last Admin: 09/12/19 08:46 Dose: 5 units Documented by: Latanoprost (Xalatan Oph) 1 drops OP HS [facility] Stop: 10/11/19 20:59 Last Admin: 09/11/19 22:34 Dose: 1 drops Documented by: Lorazepam (Ativan) 0.5 mg PO Q8H PRN PRN Reason: sedation/anxiety Stop: 10/11/19 11:59 Magnesium Hydroxide (Milk Of Magnesia) 30 ml PO Q24H PRN PRN Reason: Constipation Stop: 10/11/19 11:59 Metoclopramide HCl (Reglan) 10 mg IV Q6H PRN PRN Reason: Nausea &/or Vomiting Stop: 10/11/19 11:59 Miscellaneous (Carbohydrates For Hypoglycemia) 15 - 30 gm PO UD PRN PRN Reason: Hypoglycemia Protocol Stop: 10/11/19 13:06 Naloxone HCl (Narcan) 0.1 mg IV Q5M PRN PRN Reason: Oversedation/respiratory dep Stop: 10/11/19 11:59 Alphagan P 0.1%~Non- Formulary Patient's Own Med 1 ea OP BID [facility] Stop: 10/11/19 20:59 Last Admin: 09/12/19 08:43 Dose: 1 drops Documented by: Ondansetron HCl (Zofran) 4 mg IV Q6H PRN PRN Reason: Nausea &/or Vomiting Stop: 10/11/19 11:59 Ondansetron HCl (Zofran Odt) 4 mg PO Q6H PRN PRN Reason: Nausea Stop: 10/11/19 11:59 Oxycodone HCl (Roxicodone Immediate Rel) 5 - 10 mg PO Q4H PRN PRN Reason: Pain & Pre PT Stop: 09/25/19 11:59 Last Admin: 09/12/19 00:18 Dose: 5 mg Documented by: Pneumococcal Polyvalent Vaccine (Pneumococcal Vacc, Do Not Administer) 1 ea N/A PRN PRN PRN Reason: Notification Stop: 10/11/19 11:59 Polyethylene Glycol (Miralax Powder Packet) 17 gm PO Q6 [facility] Stop: 10/12/19 05:59 Last Admin: 09/12/19 06:25 Dose: 17 gm Documented by: Senna/Docusate Sodium (Senokot S) 2 tab PO HS [facility] Stop: 10/11/19 20:59 Last Admin: 09/11/19 21:46 Dose: 2 tab Documented by: Simvastatin (Zocor) 20 mg PO HS [facility] Stop: 10/11/19 20:59 Last Admin: 09/11/19 22:35 Dose: 20 mg Documented by: Sodium Biphosphate/Sodium Phosphate (Fleet Enema) 132 ml UT ONE PRN PRN Reason: Constipation Stop: 10/11/19 11:59 Tramadol HCl (Ultram) 50 - 100 mg PO Q4H PRN PRN Reason: Moderate-Severe pain & Pre PT Stop: 10/11/19 11:59
[2019-09-13] MEDS ORDERED: bisacodyL 10 MG SUPP PR PRN (10:09)
== END 2019-09-12 15:40 | disposition home or self-care (01) | DRG 473 ==
LOC: ASU 06:07 → 3E 10:36